=== PATIENT | female | born 1950 | race Caucasian/White ===

== ENCOUNTER 2016-07-17 14:32 | Emergency (ER) | payer MEDICARE ==
[~2016-07-17] VITALS: Ht 170.2 cm; Wt 86.2 kg
[~2016-07-17 14:32] MED LIST: ASPI325T4 PO; HYDR-971 PO; OMEP20TA PO
[2016-07-17 16:04] VITALS: BP 144/64
--- NOTE | 2016-07-17 16:22 | PHYS DOC ---
Past Medical History Past Medical History: COPD, Diverticulitis, Stroke Additional Past Medical Histor: Fibromyalgia Past Surgical History: Appendectomy, Tonsillectomy, Tubal ligation Alcohol Use: None Drug Use: None Adult General Chief Complaint Chief Complaint: HIP PAIN HPI HPI Patient is a 65 year old female who presents with L hip pain. Patient reports she has been having pain in that hip for the past 2 weeks. No fall or other trauma. Pain worse with walking or sitting on affected hip. Has been taking tylenol with insufficient relief. No pain elsewhere. No other acute complaints. Review of Systems Review of Systems Constitutional: Denies fever or chills Respiratory: Denies cough or shortness of breath Cardiovascular: Denies chest pain GI: Denies abdominal pain, nausea, vomiting, or diarrhea Musculoskeletal: L hip pain Neurologic: Denies headache, focal weakness or sensory changes Current Medications Current Medications Current Medications Medications (Trade) Dose Ordered Sig/Beatriz Start Time Stop Time Status Last Admin Dose Admin Acetaminophen/ Hydrocodone Bitart (Lortab 5/325) 1 tab 1X ONCE 07/17/16 16:30 07/17/16 16:31 DC 07/17/16 16:38 1 TAB Ibuprofen (Motrin) 600 mg 1X ONCE 07/17/16 16:30 07/17/16 16:31 DC 07/17/16 16:37 600 MG Allergies Allergies Allergies Coded Allergies Type Severity Reaction Last Updated Verified pregabalin Allergy Unknown 01/04/14 No Physical Exam Physical Exam Constitutional: Well developed, well nourished, no acute distress, non-toxic appearance Eyes: EOMI, conjunctiva normal, no discharge Pulmonary: No respiratory distress, lungs CTAB Cardiovascular: RRR, no m/r/g Abdominal: Soft, NTND Skin: Warm, dry Neurologic: Alert and oriented X 3 Musculoskeletal: L hip visually unremarkable, no erythema, skin lesion, or deformity noted; TTP over lateral hip; no significant pain with passive ROM; 2+ DP pulse; sensation to light touch, motor function intact throughout Psychologic: Affect normal, judgement normal, mood normal Current Patient Data Vital Signs Vital Signs Date Time Temp Pulse Resp B/P Pulse Ox O2 Delivery O2 Flow Rate FiO2 07/17/16 16:04 97.9 85 20 144/64 91 Room Air 97.9 EKG EKG [] Radiology/Procedures Radiology/Procedures X-ray L hip and pelvis (my read): No acute bony abnormality Course & Med Decision Making Course & Med Decision Making Pertinent Labs and Imaging studies reviewed. (See chart for details) Patient is 65 year old female who presents with atraumatic L hip pain. No overly concerning findings on physical exam. Suspect pain due to OA. Will check x-ray of hip to r/o acute bony abnormality. Oral pain meds ordered for pain control. Imaging results as above. Discussed results with patient, whose pain is improved at this time. Discussed need to follow up with ortho for further evaluation. Discharged with rx for short course of pain medication, instructions for follow up, return precautions. Dragon Disclaimer Dragon Disclaimer This electronic medical record was generated, in whole or in part, using a voice recognition dictation system. Departure Departure Impression: Primary Impression: Hip pain, left Disposition: 01 HOME, SELF-CARE Condition: STABLE Referrals: JAELYN PARKER MD (PCP) TIFFANY DING MD Patient Instructions: Hip Pain Additional Instructions: Thank you for allowing us to provide care today in the Emergency Department. Take the provided medication as directed. Use caution when taking the pain medication as it can make you drowsy. Schedule a follow up appointment with your primary care doctor and with an orthopedist using the provided contact information. Return promptly to the Emergency Department if you develop any new or concerning symptoms. Scripts Naproxen Sodium 220 Mg [id number] Mg PO BID PRN PAIN #20 Prov:IBRAHIMA LEE MD 07/17/16 Hydrocodone/Apap 5-325 ([place] 5-325 Tablet)1 Each Tablet1 Tab PO PRN Q6HRS PRN PAIN #20 TAB Prov:IBRAHIMA LEE MD 07/17/16 IBRAHIMA LEE MD Jul 17, 2016 16:22
[2016-07-17] MEDS ORDERED: HYDROCODONE/APAP 5/325MG TABLET. PO ONE (16:30)
[2016-07-17] MEDS ORDERED: IBUPROFEN 600 MG TABLET. PO ONE (16:30)
--- NOTE | 2016-07-17 17:26 | RAD ---
HIP LEFT 2V WITH PELVIS Clinical Indication: atraumatic L hip pain, r/o acute process Comparison: None. Technique: Frontal view the pelvis and frontal and frog-leg lateral views of the left hip are obtained. Findings: Bony pelvis is intact. SI joints, hip joints and pubic symphysis are maintained. Specifically, left hip joint demonstrates no evidence of acute fracture or dislocation. No significant degenerative changes are present. Overlying soft tissues demonstrate no acute finding. IMPRESSION: No acute osseous injury.
[2016-07-17] MEDS ORDERED: HYDR-971 PO (17:27)
[2016-07-17] MEDS ORDERED: NAPR220T25 PO (17:27)
== END 2016-07-17 17:43 | disposition home or self-care (01) ==
LOC: ER 14:32
DX: M25.552 Pain in left hip (principal); J44.9 Chronic obstructive pulmonary disease, unspecified; M79.7 Fibromyalgia; Z86.73 Personal history of transient ischemic attack (TIA), and cerebral infarction without residual deficits; Z90.49 Acquired absence of other specified parts of digestive tract; Z98.51 Tubal ligation status; Z88.8 Allergy status to other drugs, medicaments and biological substances
CPT/HCPCS: 73502; 99284

== ENCOUNTER 2017-07-04 21:41 | Emergency (ER) | payer MEDICARE ==
[2017-07-04] MEDS: IV NORMAL SALINE 1000ML BAG 1,000 ML IV (22:46)
[2017-07-04 22:49] LABS: ADD MAN DIFF? NO
[2017-07-04] MEDS: MORPHINE SULFATE 4 MG/ML DISP.SYRIN. IV ×2 (22:49→23:30)
[2017-07-04 22:53] LABS: BASO % 1 % (0-3); EOS # 0.1 x10^3/uL (0.0-0.7); EOS % 1 % (0-3); HEMATOCRIT 38.9 % (36.0-47.0); HEMOGLOBIN 13.1 g/dL (12.0-15.5); LYMPH # 1.8 x10^3/uL (1.0-4.8); LYMPH % 22 % (24-48); MEAN CORPUSCULAR HEMOGLOBIN 31 pg (25-35); MEAN CORPUSCULAR HGB CONC 34 g/dL (31-37); MEAN CORPUSCULAR VOLUME 91 fL (79-100); MONO # 0.7 x10^3/uL (0.0-1.1); MONO % 8 % (0-9); NEUT # 5.6 x10^3uL (1.8-7.7); NEUT % 68 % (31-73); PLATELET COUNT 233 x10^3/uL (140-400); RED BLOOD COUNT 4.28 x10^6/uL (3.50-5.40); RED CELL DISTRIBUTION WIDTH 13.1 % (11.5-14.5); WHITE BLOOD COUNT 8.2 x10^3/uL (4.0-11.0)
[2017-07-04 22:54] LABS: BILIRUBIN,URINE NEGATIVE (NEG); CLARITY,URINE CLOUDY; GLUCOSE,URINE NEGATIVE (NEG); NITRITE,URINE POSITIVE (NEG); PH,URINE 6.5; PROTEIN,URINE 30 mg/dL (NEG-TRACE); UROBILINOGEN,URINE 0.2 mg/dL (0.2 mg/dL)
[2017-07-04 22:57] LABS: COLOR,URINE STRAW
[2017-07-04 22:59] LABS: BACTERIA,URINE MANY /HPF (0-FEW); SQUAMOUS EPITHELIAL CELL,UR FEW /LPF; WBC,URINE >40 /HPF (0-4)
[2017-07-04 23:00] LABS: ANION GAP 11 (6-14); BLOOD UREA NITROGEN 18 mg/dL (7-20); BUN/CREATININE RATIO 23 (6-20); CALCIUM 8.5 mg/dL (8.5-10.1); CARBON DIOXIDE 26 mmol/L (21-32); CHLORIDE 105 mmol/L (98-107); CREATININE 0.8 mg/dL (0.6-1.0); GFR 71.8; GLUCOSE 115 mg/dL (70-99); POTASSIUM 3.7 mmol/L (3.5-5.1); SODIUM 142 mmol/L (136-145)
[2017-07-04 23:06] LABS: ALBUMIN 3.2 g/dL (3.4-5.0); ALBUMIN/GLOBULIN RATIO 0.9 (1.0-1.7); ALK PHOS 138 U/L (46-116); ALT (SGPT) 24 U/L (14-59); AST (SGOT) 17 U/L (15-37); TOTAL BILIRUBIN 0.4 mg/dL (0.2-1.0); TOTAL PROTEIN 6.6 g/dL (6.4-8.2)
== END 2017-07-05 00:40 | disposition home or self-care (01) ==
LOC: ER 07-05 00:40
DX: N39.0 Urinary tract infection, site not specified (principal); E86.0 Dehydration; J44.9 Chronic obstructive pulmonary disease, unspecified; Z86.73 Personal history of transient ischemic attack (TIA), and cerebral infarction without residual deficits; Z98.51 Tubal ligation status; Z90.49 Acquired absence of other specified parts of digestive tract; Z88.8 Allergy status to other drugs, medicaments and biological substances
CPT/HCPCS: 36415; 80053; 81001; 85025; 96361; 96365; 96375; 99285-25; J0690; J2270; J7030

== ENCOUNTER → 2017-07-11 | Outpatient (CLI) | payer MEDICARE | END | disposition home or self-care (01) | LOC: KCIC MAMMO 10:09 | DX: Z12.31 Encounter for screening mammogram for malignant neoplasm of breast (principal) | CPT/HCPCS: 77063; 77067 ==

== ENCOUNTER → 2017-08-04 | Outpatient (CLI) | payer MEDICARE ==
[2017-08-04 13:40] LABS: ADD MAN DIFF? NO
[2017-08-04 13:43] LABS: BASO # 0.1 x10^3/uL (0.0-0.2); BASO % 1 % (0-3); EOS # 0.1 x10^3/uL (0.0-0.7); EOS % 2 % (0-3); HEMOGLOBIN 14.5 g/dL (12.0-15.5); LYMPH # 2.1 x10^3/uL (1.0-4.8); LYMPH % 34 % (24-48); MEAN CORPUSCULAR HEMOGLOBIN 32 pg (25-35); MEAN CORPUSCULAR HGB CONC 35 g/dL (31-37); MEAN CORPUSCULAR VOLUME 91 fL (79-100); MONO # 0.5 x10^3/uL (0.0-1.1); MONO % 8 % (0-9); NEUT # 3.4 x10^3uL (1.8-7.7); NEUT % 56 % (31-73); PLATELET COUNT 220 x10^3/uL (140-400); RED BLOOD COUNT 4.51 x10^6/uL (3.50-5.40); RED CELL DISTRIBUTION WIDTH 13.1 % (11.5-14.5); WHITE BLOOD COUNT 6.2 x10^3/uL (4.0-11.0)
[2017-08-04 13:48] LABS: BILIRUBIN,URINE NEGATIVE (NEG); CLARITY,URINE CLEAR; COLOR,URINE YELLOW; GLUCOSE,URINE NEGATIVE (NEG); NITRITE,URINE NEGATIVE (NEG); PROTEIN,URINE NEGATIVE (NEG-TRACE); UROBILINOGEN,URINE 0.2 mg/dL (0.2 mg/dL)
[2017-08-04 13:55] LABS: PARTIAL THROMBOPLASTIN TIME 24 SEC (24-38); PROTHROMBIN TIME PATIENT 12.3 SEC (11.7-14.0)
[2017-08-04 14:02] LABS: ALBUMIN 3.6 g/dL (3.4-5.0); ALK PHOS 124 U/L (46-116); ALT (SGPT) 28 U/L (14-59); ANION GAP 7 (6-14); AST (SGOT) 19 U/L (15-37); BLOOD UREA NITROGEN 16 mg/dL (7-20); BUN/CREATININE RATIO 20 (6-20); CARBON DIOXIDE 30 mmol/L (21-32); CHLORIDE 104 mmol/L (98-107); CREATININE 0.8 mg/dL (0.6-1.0); GFR 71.8; GLUCOSE 90 mg/dL (70-99); POTASSIUM 3.9 mmol/L (3.5-5.1); SODIUM 141 mmol/L (136-145); TOTAL BILIRUBIN 0.4 mg/dL (0.2-1.0); TOTAL PROTEIN 7.3 g/dL (6.4-8.2)
[2017-08-04 14:06] LABS: BACTERIA,URINE FEW /HPF (0-FEW); RBC,URINE 0 /HPF (0-2); SQUAMOUS EPITHELIAL CELL,UR MOD /LPF
== END | disposition home or self-care (01) ==
LOC: SURGPAT 13:01
DX: Z01.818 Encounter for other preprocedural examination (principal); I10 Essential (primary) hypertension; E78.5 Hyperlipidemia, unspecified
CPT/HCPCS: 36415; 71046; 80053; 81001; 85025; 85610; 85730; 93005

== ENCOUNTER 2017-08-10 08:39 | Observation (INO) | payer MEDICARE ==
[~2017-08-10 08:39] MED LIST changes: -ASPI325T4 PO; +DEXAMETHASONE SOD PHOS 20 MG/5 ML VIAL.; +ESTROGENS, CONJ VAGINAL CREAM 30GM TUBE.; -HYDR-971 PO; +IV RINGERS,LACTATED 1000ML 1,000 ML IV; +LIDOCAINE 1% PF 2 ML VIAL. ID; +LIDOCAINE 2% PF Vial for OR 5 ML VIAL.; +METHYLENE BLUE 1% 10 ML VIAL.; +MIDAZOLAM HCL/PF 2 MG/2 ML VIAL.; +MORPHINE SULFATE 2 MG/ML DISP.SYRIN. IV; -OMEP20TA PO; +PROCHLORPERAZINE 10 MG/2 ML VIAL. IV; +PROPOFOL 20 ML IV; +ROCURONIUM 50 MG/5 ML VIAL.; +SCOPOLAMINE 1.5MG PATCH. TD; +ceFAZolin 2GM PREMIX 2 GM/50 ML BAG IV; +fentaNYL PF VIAL 100 MCG/2 ML VIAL; +fentaNYL PF VIAL 100 MCG/2 ML VIAL IV
[2017-08-10] MEDS: BUPIVACAINE-EPI 0.25%-1:200000 50 ML VIAL. ×6 (09:06)
[2017-08-10] MEDS ORDERED: fentaNYL PF VIAL 100 MCG/2 ML VIAL ×9 (09:19→12:11)
[2017-08-10] MEDS ORDERED: ONDANSETRON PF 4 MG/2 ML VIAL. ×3 (10:26)
[2017-08-10] MEDS ORDERED: GLYCOPYRROLATE 1 MG/5 ML VIAL. ×3 (10:26)
[2017-08-10] MEDS ORDERED: NEOSTIGMINE METHYLSULFATE 5 MG/5 ML SYRINGE. ×3 (10:26)
[2017-08-10] MEDS ORDERED: SEVOFLURANE 61 TO 120 MINUTES. IH ×3 (10:28)
[2017-08-10] MEDS ORDERED: PHENYLEPHRINE 10 MG/ML VIAL. ×3 (10:34)
[2017-08-10] MEDS ORDERED: METOCLOPRAMIDE HCL 10 MG/2 ML VIAL. ×3 (10:38)
[2017-08-10] MEDS ORDERED: diphenhydrAMINE HCL 25 MG CAPSULE PO ×3 (11:00)
[2017-08-10] MEDS ORDERED: ALBUTEROL SULFATE 2.5 MG/3 ML NEBU. NEB ×3 (11:00)
[2017-08-10] MEDS ORDERED: MAGNESIUM HYDROXIDE 2,400 MG/30 ML ORAL.SUSP. PO ×3 (11:00)
[2017-08-10] MEDS ORDERED: 0.9 % SODIUM CHLORIDE 10 ML DISP.SYRIN. IV ×3 (11:00)
[2017-08-10] MEDS ORDERED: MORPHINE SULFATE 4 MG/ML DISP.SYRIN. IV ×3 (11:00)
[2017-08-10] MEDS ORDERED: CALCIUM CARBONATE 500 MG TAB.CHEW PO ×3 (11:00)
[2017-08-10] MEDS ORDERED: NALOXONE 0.4 MG/ML VIAL. IV ×3 (11:00)
[2017-08-10] MEDS ORDERED: MAG HYDROX/ALUMINUM HYD/SIMETH 30 ML ORAL.SUSP PO ×3 (11:00)
[2017-08-10] MEDS ORDERED: LACTULOSE 20 GM/30 ML SOLUTION. PO ×3 (11:00)
[2017-08-10] MEDS ORDERED: SIMETHICONE 80 MG TAB.CHEW PO ×3 (11:00)
[2017-08-10] MEDS ORDERED: ZOLPIDEM 5 MG TABLET. PO ×3 (11:00)
[2017-08-10] MEDS ORDERED: diphenhydrAMINE 50 MG/ML VIAL IV ×3 (11:00)
[2017-08-10] MEDS ORDERED: ONDANSETRON PF 4 MG/2 ML VIAL. IV ×3 (11:00)
[2017-08-10] MEDS ORDERED: HYDROcodone/APAP 5/325MG 1 TAB TABLET PO ×3 (11:00)
[2017-08-10] MEDS: fentaNYL PF VIAL 100 MCG/2 ML VIAL IV ×9 (11:46→12:23)
[2017-08-10] MEDS: ONDANSETRON PF 4 MG/2 ML VIAL. IV ×3 (13:18)
[2017-08-10] MEDS: oxyCODONE/APAP 5/325 1 TAB TABLET PO ×3 (15:52)
[2017-08-11 03:30] LABS: HEMATOCRIT 39.6 % (36.0-47.0)
[2017-08-11 03:48] LABS: ANION GAP 6 (6-14); BLOOD UREA NITROGEN 11 mg/dL (7-20); CALCIUM 8.7 mg/dL (8.5-10.1); CARBON DIOXIDE 29 mmol/L (21-32); CHLORIDE 106 mmol/L (98-107); CREATININE 0.8 mg/dL (0.6-1.0); GFR 71.8; GLUCOSE 111 mg/dL (70-99); POTASSIUM 4.1 mmol/L (3.5-5.1); SODIUM 141 mmol/L (136-145)
[2017-08-11] MEDS: oxyCODONE/APAP 5/325 1 TAB TABLET PO ×3 (07:17)
== END 2017-08-11 09:50 | disposition home or self-care (01) ==
LOC: SURG 08:39 → 3 NORTH 11:45
DX: N80.0 Endometriosis of uterus (principal); N88.8 Other specified noninflammatory disorders of cervix uteri; K66.0 Peritoneal adhesions (postprocedural) (postinfection); N85.8 Other specified noninflammatory disorders of uterus; J44.9 Chronic obstructive pulmonary disease, unspecified; N81.3 Complete uterovaginal prolapse; Z90.49 Acquired absence of other specified parts of digestive tract
CPT/HCPCS: 36415; 80048; 85014; 86850; 86900; 86901; 88302; 88305; 96374; A7015; G0378; G0379; J0690; J1100; J2001; J2250; J2405; J2704; J2710; J2765; J3010; J3490; J7030; J7120; Q9968

== ENCOUNTER 2018-01-26 14:28 | Inpatient (IN) | payer MEDICARE ==
[~2018-01-26] VITALS: Ht 170.2 cm; Wt 89.4 kg
[~2018-01-26 14:28] MED LIST changes: +ASPI325T8 PO; +CIPR500T PO; -DEXAMETHASONE SOD PHOS 20 MG/5 ML VIAL.; -ESTROGENS, CONJ VAGINAL CREAM 30GM TUBE.; +HYDR-971 PO; -IV RINGERS,LACTATED 1000ML 1,000 ML IV; -LIDOCAINE 1% PF 2 ML VIAL. ID; -LIDOCAINE 2% PF Vial for OR 5 ML VIAL.; -METHYLENE BLUE 1% 10 ML VIAL.; -MIDAZOLAM HCL/PF 2 MG/2 ML VIAL.; -MORPHINE SULFATE 2 MG/ML DISP.SYRIN. IV; +NAPR-634 PO; +OMEP20TA8 PO; -PROCHLORPERAZINE 10 MG/2 ML VIAL. IV; -PROPOFOL 20 ML IV; -ROCURONIUM 50 MG/5 ML VIAL.; -SCOPOLAMINE 1.5MG PATCH. TD; -ceFAZolin 2GM PREMIX 2 GM/50 ML BAG IV; -fentaNYL PF VIAL 100 MCG/2 ML VIAL; -fentaNYL PF VIAL 100 MCG/2 ML VIAL IV
[2018-01-26] MEDS ORDERED: fentaNYL PF VIAL 100 MCG/2 ML VIAL IV ONE (15:15)
[2018-01-26] MEDS ORDERED: FAMOTIDINE 20 MG/2 ML VIAL IVP ONE (15:15)
--- NOTE | 2018-01-26 15:21 | PHYS DOC ---
Past Medical History Past Medical History: High Cholesterol, Stroke Additional Past Medical Histor: Fibromyalgia Past Surgical History: Hysterectomy Alcohol Use: None Drug Use: None Adult General Chief Complaint Chief Complaint: ABDOMINAL PAIN HPI HPI Patient is a 67 year old female who presents with upper abdominal pain that she states goes from right to left and all the way around her back and has been coming off and on for the last 30 minutes. Patient states it's a crampy pain and she rates it 10 out of 10. Patient states this morning she had a hamburger and fries and a Coke. Patient did state she had some nausea but has not vomited. She is alert and oriented. Patient denies chest pain but states she is short of air. She took no medications before coming and only takes naproxen and aspirin daily. Patient has a history of a stroke 5 years ago without any residual, hysterectomy, high cholesterol. She is allergic to Lyrica. Review of Systems Review of Systems Constitutional: Denies fever or chills [] Eyes: Denies change in visual acuity, redness, or eye pain [] HENT: Denies nasal congestion or sore throat [] Respiratory: Denies cough. Shortness of breath [] Cardiovascular: No additional information not addressed in HPI [] GI: bilateral upper quadrants abdominal pain with radiation around to back, nausea. Denies vomiting, bloody stools or diarrhea [] : Denies dysuria or hematuria [] Musculoskeletal: Denies back pain or joint pain [] Integument: Denies rash or skin lesions [] Neurologic: Denies headache, focal weakness or sensory changes [] Endocrine: Denies polyuria or polydipsia [] All other systems were reviewed and found to be within normal limits, except as documented in this note. Current Medications Current Medications Current Medications Medications (Trade) Dose Ordered Sig/Beatriz Start Time Stop Time Status Last Admin Dose Admin Acetaminophen (Tylenol) 650 mg PRN Q4HRS PRN 01/26/18 17:30 01/27/18 17:29 Ceftriaxone Sodium 50 ml @ 100 mls/hr 1X ONCE 01/26/18 17:30 01/26/18 17:59 Famotidine (Pepcid Vial) 20 mg 1X ONCE 01/26/18 15:15 01/26/18 15:16 DC 01/26/18 15:41 20 MG Fentanyl Citrate (Fentanyl 2ml Vial) 50 mcg PRN Q2HR PRN 01/26/18 17:30 01/27/18 17:29 Info (CONTRAST GIVEN -- Rx MONITORING) 1 each PRN DAILY PRN 01/26/18 16:45 01/28/18 16:44 Iohexol (Omnipaque 300 Mg/ml) 75 ml 1X ONCE 01/26/18 16:45 01/26/18 16:46 DC 01/26/18 16:53 75 ML Ondansetron HCl (Zofran) 4 mg PRN Q8HRS PRN 01/26/18 17:30 01/27/18 17:29 Sodium Chloride 1,000 ml @ 80 mls/hr [id number] 01/26/18 17:23 01/27/18 17:22 Allergies Allergies Allergies Coded Allergies Type Severity Reaction Last Updated Verified pregabalin Allergy Intermediate 08/04/17 No Physical Exam Physical Exam Constitutional: Well developed, well nourished, no acute distress, non-toxic appearance. [] HENT: Normocephalic, atraumatic, bilateral external ears normal, oropharynx moist, no oral exudates, nose normal. [] Eyes: PERRLA, EOMI, conjunctiva normal, no discharge. [] Neck: Normal range of motion, no tenderness, supple, no stridor. [] Cardiovascular:Heart rate regular rhythm, no murmur [] Lungs & Thorax: Bilateral breath sounds clear to auscultation [] Abdomen: Bowel sounds normal, soft, Left upper abdominal tenderness, no masses, no pulsatile masses. [] Skin: Warm, dry, no erythema, no rash. [] Back: No tenderness, no CVA tenderness. [] Extremities: No tenderness, no cyanosis, no clubbing, ROM intact, no edema. [] Neurologic: Alert and oriented X 3, normal motor function, normal sensory function, no focal deficits noted. [] Psychologic: Affect normal, judgement normal, mood normal. [] Current Patient Data Vital Signs Vital Signs Date Time Temp Pulse Resp B/P (MAP) Pulse Ox O2 Delivery O2 Flow Rate FiO2 01/26/18 15:40 20 97 01/26/18 14:50 97.5 106 177/88 (117) Room Air 97.5 Lab Values Laboratory Tests Test 01/26/18 15:30 01/26/18 16:05 White Blood Count 7.2 x10^3/uL (4.0-11.0) Red Blood Count 4.57 x10^6/uL (3.50-5.40) Hemoglobin 14.5 g/dL (12.0-15.5) Hematocrit 41.7 % (36.0-47.0) Mean Corpuscular Volume 91 fL (79-100) Mean Corpuscular Hemoglobin 32 pg (25-35) Mean Corpuscular Hemoglobin Concent 35 g/dL (31-37) Red Cell Distribution Width 13.4 % (11.5-14.5) Platelet Count 203 x10^3/uL (140-400) Neutrophils (%) (Auto) 75 % (31-73) H Lymphocytes (%) (Auto) 17 % (24-48) L Monocytes (%) (Auto) 6 % (0-9) Eosinophils (%) (Auto) 1 % (0-3) Basophils (%) (Auto) 0 % (0-3) Neutrophils # (Auto) 5.4 x10^3uL (1.8-7.7) Lymphocytes # (Auto) 1.3 x10^3/uL (1.0-4.8) Monocytes # (Auto) 0.5 x10^3/uL (0.0-1.1) Eosinophils # (Auto) 0.1 x10^3/uL (0.0-0.7) Basophils # (Auto) 0.0 x10^3/uL (0.0-0.2) Sodium Level 141 mmol/L (136-145) Potassium Level 4.2 mmol/L (3.5-5.1) Chloride Level 105 mmol/L (98-107) Carbon Dioxide Level 26 mmol/L (21-32) Anion Gap 10 (6-14) Blood Urea Nitrogen 17 mg/dL (7-20) Creatinine 0.8 mg/dL (0.6-1.0) Estimated GFR (Cockcroft-Gault) 71.5 BUN/Creatinine Ratio 21 (6-20) H Glucose Level 100 mg/dL (70-99) H Calcium Level 9.7 mg/dL (8.5-10.1) Total Bilirubin 0.5 mg/dL (0.2-1.0) Aspartate Amino Transferase (AST) 73 U/L (15-37) H Alanine Aminotransferase (ALT) 54 U/L (14-59) Alkaline Phosphatase 180 U/L (46-116) H Troponin I Quantitative < 0.017 ng/mL (0.000-0.055) Total Protein 7.5 g/dL (6.4-8.2) Albumin 3.8 g/dL (3.4-5.0) Albumin/Globulin Ratio 1.0 (1.0-1.7) Lipase 149 U/L (73-393) Urine Collection Type Unknown Urine Color Yellow Urine Clarity Clear Urine pH 7.0 Urine Specific [place] 1.020 Urine Protein Negative mg/dL (NEG-TRACE) Urine Glucose (UA) Negative mg/dL (NEG) Urine Ketones (Stick) Negative mg/dL (NEG) Urine Blood Negative (NEG) Urine Nitrite Positive (NEG) Urine Bilirubin Negative (NEG) Urine Urobilinogen Dipstick 0.2 mg/dL (0.2 mg/dL) Urine Leukocyte Esterase Large (NEG) Urine RBC 0 /HPF (0-2) Urine WBC >40 /HPF (0-4) Urine Squamous Epithelial Cells Few /LPF Urine Bacteria Many /HPF (0-FEW) Urine Mucus Mod /LPF Urine Opiates Screen Neg (NEG) Urine Methadone Screen Neg (NEG) Urine Barbiturates Neg (NEG) Urine Phencyclidine Screen Neg (NEG) Urine Amphetamine/Methamphetamine Neg (NEG) Urine Benzodiazepines Screen Neg (NEG) Urine Cocaine Screen Neg (NEG) Urine Cannabinoids Screen Neg (NEG) Urine Ethyl Alcohol Neg (NEG) Laboratory Tests 01/26/18 15:30 Laboratory Tests 01/26/18 15:30 EKG EKG Sinus rhythm, no STEMI[] Interpretation Time: [address] Lovett Radiology/Procedures Radiology/Procedures CT abdomen, pelv, Chest xray Impressions: [facility] [address] [place], [place] [id number] IMAGING REPORT Signed PATIENT: HALLEY OBRIEN V ACCOUNT: [id number] : 1950 LOCATION: ER AGE: 67 SEX: F EXAM STATUS: PRE ER ORD. PHYSICIAN: LAZ PRABHAKAR APRN REASON: shortness of air blood work 3:25 PROCEDURE: CHEST PA & LATERAL CHEST PA LATERAL History: Short of breath Comparison: Two-view chest August 04, 2017. Findings: The cardiomediastinal silhouette is normal. Pulmonary vasculature is normal. The lungs are clear. No pleural effusion or pneumothorax is seen. There is no acute bone abnormality. IMPRESSION: No acute cardiopulmonary process. Electronically signed by: Yuriy Dickson MD (01/26/2018 4:11 PM) [id number] DICTATED and SIGNED BY: YURIY DICKSON MD DATE: 01/26/18 1610 [facility] [address] [place] [address] IMAGING REPORT Signed PATIENT: HALLEY OBRIEN V ACCOUNT: [id number] : 1950 LOCATION: ER AGE: 67 SEX: F EXAM STATUS: REG ER ORD. PHYSICIAN: LAZ PRABHAKAR APRN REASON: abdominal pain PROCEDURE: CT ABD PELV W/ IV CONTRST ONLY PQRS Compliance statement: One or more of the following individualized dose reduction techniques were utilized for this examination: 1. Automated exposure control. 2. Adjustment of the mA and/or kV according to patient size. 3. Use of iterative reconstruction technique. Indication:ABD PAIN AND NAUSEA INJ 75ML OMNI 300 PREV SENT TECHNIQUE: CT abdomen and pelvis with IV contrast with multiplanar reformats. COMPARISON: 01/23/2016 FINDINGS: Heart is normal in size. No pericardial or pleural effusion. Small sliding hiatal hernia. Clear lung bases. Liver, spleen, gallbladder, pancreas, adrenals and kidneys within normal limits. No enlarged retroperitoneal or pelvic adenopathy. No free pelvic fluid or ascites. No bowel obstruction. Urinary bladder within normal limits. Status post hysterectomy. No pneumoperitoneum. No suspicious bony lesion. IMPRESSION: 1. Small sliding hiatal hernia. Electronically signed by: Alejandro Pablo DO (01/26/2018 5:03 PM) [facility] DICTATED and SIGNED BY: ALEJANDRO PABLO DO DATE: 01/26/18 1659 Course & Med Decision Making Course & Med Decision Making Patient is a 67 year old female who presents with upper abdominal pain that she states goes from right to left and all the way around her back and has been coming off and on for the last 30 minutes. Patient states it's a crampy pain and she rates it 10 out of 10. Patient states this morning she had a hamburger and fries and a Coke. Patient did state she had some nausea but has not vomited. She is alert and oriented. Patient denies chest pain but states she is short of air. She took no medications before coming and only takes naproxen and aspirin daily. Patient has a history of a stroke 5 years ago without any residual, hysterectomy, high cholesterol. She is allergic to Lyrica. When patient is asked about her pain she points directly to her mid epigastric area and states that it will radiate up the mid chest slightly and then radiates around her abdomen to her back. Abdomen is soft and there are no masses felt but she does have some left upper quadrant tenderness with palpation. Heart rate is at on 106 but no murmur. She is 95% on room air, blood pressure is 177/ 88. Skin is pink warm and dry. I have ordered her Pepcid, Fentanyl and Zofran IV. EKG show Sinus Rhythm and no STEMI by Dr Lovett. Chest x-ray shows no acute findings. Troponin is negative. CT ABD PELV shows small sliding hiatal hernia. Urinalysis shows probable pyelonephritis. Patient is started on Rocephin and is admitted to Dr Cash. Patient states she is feeling much better and is wanting something to eat or drink. Patient is told she needs to stay NPO at this time. Dragon Disclaimer Dragon Disclaimer This electronic medical record was generated, in whole or in part, using a voice recognition dictation system. Departure Departure Impression: Primary Impression: Pyelonephritis Disposition: ADMITTED INPATIENT Admitting Physician: Rhiannon Cash Condition: STABLE Referrals: JAELYN PARKER MD (PCP) Patient Instructions: Pyelonephritis, Adult LAZ PRABHAKAR WIRE SPOOLER Jan 26, 2018 15:21
[2018-01-26] MEDS ORDERED: ONDANSETRON PF 4 MG/2 ML VIAL. IV ONE (15:30)
--- NOTE | 2018-01-26 15:57 | EKG ---
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
[2018-01-26 16:10] LABS: BASO % 0 % (0-3); EOS # 0.1 x10^3/uL (0.0-0.7); EOS % 1 % (0-3); HEMATOCRIT 41.7 % (36.0-47.0); HEMOGLOBIN 14.5 g/dL (12.0-15.5); LYMPH # 1.3 x10^3/uL (1.0-4.8); LYMPH % 17 % (24-48); MEAN CORPUSCULAR HEMOGLOBIN 32 pg (25-35); MEAN CORPUSCULAR HGB CONC 35 g/dL (31-37); MEAN CORPUSCULAR VOLUME 91 fL (79-100); MONO # 0.5 x10^3/uL (0.0-1.1); MONO % 6 % (0-9); NEUT # 5.4 x10^3uL (1.8-7.7); NEUT % 75 % (31-73); PLATELET COUNT 203 x10^3/uL (140-400); RED BLOOD COUNT 4.57 x10^6/uL (3.50-5.40); RED CELL DISTRIBUTION WIDTH 13.4 % (11.5-14.5); WHITE BLOOD COUNT 7.2 x10^3/uL (4.0-11.0)
--- NOTE | 2018-01-26 16:14 | RAD ---
CHEST PA LATERAL History: Short of breath Comparison: Two-view chest August 04, 2017. Findings: The cardiomediastinal silhouette is normal. Pulmonary vasculature is normal. The lungs are clear. No pleural effusion or pneumothorax is seen. There is no acute bone abnormality. IMPRESSION: No acute cardiopulmonary process. Electronically signed by: Yuriy Dickson MD (01/26/2018 4:11 PM) [id number]
[2018-01-26 16:21] LABS: CALCIUM 9.7 mg/dL (8.5-10.1); CREATININE 0.8 mg/dL (0.6-1.0); GFR 71.5; POTASSIUM 4.2 mmol/L (3.5-5.1)
[2018-01-26 16:25] LABS: BILIRUBIN,URINE NEGATIVE (NEG); CLARITY,URINE CLEAR; COLOR,URINE YELLOW; NITRITE,URINE POSITIVE (NEG); PROTEIN,URINE NEGATIVE (NEG-TRACE); UROBILINOGEN,URINE 0.2 mg/dL (0.2 mg/dL)
[2018-01-26 16:29] LABS: BARBITURATES NEG (NEG); BENZODIAZEPINES NEG (NEG); CANNABINOIDS NEG (NEG); COCAINE NEG (NEG); METHADONE NEG (NEG); OPIATES NEG (NEG); PHENCYCLIDINE NEG (NEG)
[2018-01-26 16:31] LABS: AMPHETAMINE/METHAMPHETAMINE NEG (NEG)
[2018-01-26 16:32] LABS: BACTERIA,URINE MANY /HPF (0-FEW); SQUAMOUS EPITHELIAL CELL,UR FEW /LPF; WBC,URINE >40 /HPF (0-4)
[2018-01-26 16:33] LABS: RBC,URINE 0 /HPF (0-2)
[2018-01-26 16:33] LABS: ALBUMIN 3.8 g/dL (3.4-5.0); TOTAL BILIRUBIN 0.5 mg/dL (0.2-1.0); TOTAL PROTEIN 7.5 g/dL (6.4-8.2)
[2018-01-26] MEDS ORDERED: CONTRAST GIVEN. MC PRN (16:45)
[2018-01-26] MEDS ORDERED: IOHEXOL 300 MG/ML 100ML VIAL. IV ONE (16:45)
[2018-01-26] MEDS ORDERED: IV NORMAL SALINE 1000ML BAG 1,000 ML IV ONE (17:00)
--- NOTE | 2018-01-26 17:06 | RAD ---
PQRS Compliance statement: One or more of the following individualized dose reduction techniques were utilized for this examination: 1. Automated exposure control. 2. Adjustment of the mA and/or kV according to patient size. 3. Use of iterative reconstruction technique. Indication:ABD PAIN AND NAUSEA INJ 75ML OMNI 300 PREV SENT TECHNIQUE: CT abdomen and pelvis with IV contrast with multiplanar reformats. COMPARISON: 01/23/2016 FINDINGS: Heart is normal in size. No pericardial or pleural effusion. Small sliding hiatal hernia. Clear lung bases. Liver, spleen, gallbladder, pancreas, adrenals and kidneys within normal limits. No enlarged retroperitoneal or pelvic adenopathy. No free pelvic fluid or ascites. No bowel obstruction. Urinary bladder within normal limits. Status post hysterectomy. No pneumoperitoneum. No suspicious bony lesion. IMPRESSION: 1. Small sliding hiatal hernia. Electronically signed by: Alejandro Pablo DO (01/26/2018 5:03 PM) [facility]
[2018-01-26] MEDS ORDERED: ONDANSETRON PF 4 MG/2 ML VIAL. IV PRN ×2 (17:30→18:00)
[2018-01-26] MEDS ORDERED: ACETAMINOPHEN 325 MG TABLET. PO PRN (17:30)
[2018-01-26] MEDS ORDERED: fentaNYL PF VIAL 100 MCG/2 ML VIAL IV PRN (17:30)
[2018-01-26] MEDS ORDERED: MAG HYDROX/ALUMINUM HYD/SIMETH 30 ML ORAL.SUSP PO PRN (18:00)
[2018-01-26] MEDS ORDERED: LIDO:MAALOX 1:1 20 ML SINGLE DOSE. PO PRN (18:00)
--- NOTE | 2018-01-26 18:06 | PDOC1 ---
History and Physical Date of Admission Date of Admission DATE: 01/26/18 TIME: 18:01 Identification/Chief Complaint Chief Complaint epig pain Source Source: Caregiver, Chart review, Patient History of Present Illness History of Present Illness 67-year-old female who only takes a statin for dyslipidemia, epigastric pain today. Acute on chronic epig pain, no weight loss, no emesis, no change in BM. CAT scan shows small hiatal hernia but there is an incidental UTI hence admitted. Blood pressure on the high side. Patient claims that she was arranged by her PCP to see a GI M.D. 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 Never had an EGD. She does not think it is her heart and i believe her, She clearly points to epig area and describes reflux sxs to me. She chronically takes Prevacid. Trial of Tums and Mylanta OTC to no relief. Previous smoker, quit 8 months ago because she "got tired of it." Otherwise no drinking history. No history of peptic ulcer disease in the family. She does take aspirin and NSAIDs at home when necessary. I will consult GI, treat UTI and go from there. She is agreeable to my plan, Past Medical History Cardiovascular: No pertinent hx, Hyperlipidemia Pulmonary: COPD GI: No pertinent hx Heme/Onc: No pertinent hx Infectious disease: No pertinent hx Renal/: No pertinent hx Endocrine: No pertinent hx Past Surgical History Past Surgical History: Appendectomy, Tubal Ligation, Hysterectomy Family History Family History: Hypertension Social History Smoke: Quit ALCOHOL: none Drugs: None Current Problem List Problem List Problems Medical Problems: (1) Pyelonephritis Status: Acute Current Medications Current Medications Current Medications Famotidine (Pepcid Vial) 20 mg 1X ONCE IVP Last administered on 01/26/18at 15: 41; Start 01/26/18 at 15:15; Stop 01/26/18 at 15:16; Status DC Fentanyl Citrate (Fentanyl 2ml Vial) 50 mcg 1X ONCE IV Last administered on at 15:40; Start 01/26/18 at 15:15; Stop 01/26/18 at 15:16; Status DC Ondansetron HCl (Zofran) 4 mg 1X ONCE IV Last administered on 01/26/18at 15:40 ; Start 01/26/18 at 15:30; Stop 01/26/18 at 15:31; Status DC Iohexol (Omnipaque 300 Mg/ml) 75 ml 1X ONCE IV Last administered on at 16:53; Start 01/26/18 at 16:45; Stop 01/26/18 at 16:46; Status DC Info (CONTRAST GIVEN -- Rx MONITORING) 1 each PRN DAILY PRN MC SEE COMMENTS; Start 01/26/18 at 16:45; Stop 01/28/18 at 16:44 Sodium Chloride 1,000 ml @ 1,000 mls/hr 1X ONCE IV ; Start 01/26/18 at 17:00 ; Stop 01/26/18 at 17:59; Status DC Ceftriaxone Sodium 50 ml @ 100 mls/hr 1X ONCE IV ; Start 01/26/18 at 17:30; Stop 01/26/18 at 17:59; Status DC Ondansetron HCl (Zofran) 4 mg PRN Q8HRS PRN IV NAUSEA/VOMITING; Start at 17:30; Stop 01/27/18 at 17:29 Fentanyl Citrate (Fentanyl 2ml Vial) 50 mcg PRN Q2HR PRN IV PAIN; Start at 17:30; Stop 01/27/18 at 17:29 Sodium Chloride 1,000 ml @ 80 mls/hr [id number] IV ; Start 01/26/18 at 17:23; Stop 01/27/18 at 17:22 Acetaminophen (Tylenol) 650 mg PRN Q4HRS PRN PO FEVER; Start 01/26/18 at 17:30 ; Stop 01/27/18 at 17:29 Active Scripts Active Naproxen Sodium 220 Mg Tablet 220 Mg PO BID PRN Reported Aspirin 325 Mg Tablet 325 Mg PO PRN PRN Allergies Allergies: Coded Allergies: pregabalin (Unverified Allergy, Intermediate, 08/04/17) "MAKES ME STUPID" ROS Review of System Asper history of present illness, the rest of ROS 14 point negative Physical Exam General: Alert, Oriented X3, Cooperative, No acute distress HEENT: Atraumatic, PERRLA, EOMI Lungs: Clear to auscultation, Normal air movement Heart: S1S2, RRR, no thrills, no rubs, no gallops, no murmurs Cardiovascular: S1, S2 Breasts: Normal, Rt breast nml w/o mass, Lt breast nml w/o mass, Nipples normal Abdomen: Normal bowel sounds, Soft, No tenderness, No hepatosplenomegaly, No masses Rectal Exam: not examined PELVIC: Nml ext genitalia Extremities: No clubbing, No cyanosis, No edema, Normal pulses, No tenderness/ swelling Skin: No rashes, No breakdown, No significant lesion Neuro: Normal gait, Normal speech, Strength at 5/5 X4 ext, Normal tone, Sensation intact, Cranial nerves 3-12 NL, Reflexes 2+ Psych/Mental Status: Mental status NL, Mood NL Vitals Vitals Vital Signs Date Time Temp Pulse Resp B/P (MAP) Pulse Ox O2 Delivery O2 Flow Rate FiO2 01/26/18 16:30 86 16 152/73 (99) Room Air 96.0 01/26/18 15:40 97 01/26/18 14:50 97.5 97.5 Labs Labs Laboratory Tests Test 01/26/18 15:30 01/26/18 16:05 White Blood Count 7.2 x10^3/uL (4.0-11.0) Red Blood Count 4.57 x10^6/uL (3.50-5.40) Hemoglobin 14.5 g/dL (12.0-15.5) Hematocrit 41.7 % (36.0-47.0) Mean Corpuscular Volume 91 fL (79-100) Mean Corpuscular Hemoglobin 32 pg (25-35) Mean Corpuscular Hemoglobin Concent 35 g/dL (31-37) Red Cell Distribution Width 13.4 % (11.5-14.5) Platelet Count 203 x10^3/uL (140-400) Neutrophils (%) (Auto) 75 % (31-73) Lymphocytes (%) (Auto) 17 % (24-48) Monocytes (%) (Auto) 6 % (0-9) Eosinophils (%) (Auto) 1 % (0-3) Basophils (%) (Auto) 0 % (0-3) Neutrophils # (Auto) 5.4 x10^3uL (1.8-7.7) Lymphocytes # (Auto) 1.3 x10^3/uL (1.0-4.8) Monocytes # (Auto) 0.5 x10^3/uL (0.0-1.1) Eosinophils # (Auto) 0.1 x10^3/uL (0.0-0.7) Basophils # (Auto) 0.0 x10^3/uL (0.0-0.2) Sodium Level 141 mmol/L (136-145) Potassium Level 4.2 mmol/L (3.5-5.1) Chloride Level 105 mmol/L (98-107) Carbon Dioxide Level 26 mmol/L (21-32) Anion Gap 10 (6-14) Blood Urea Nitrogen 17 mg/dL (7-20) Creatinine 0.8 mg/dL (0.6-1.0) Estimated GFR (Cockcroft-Gault) 71.5 BUN/Creatinine Ratio 21 (6-20) Glucose Level 100 mg/dL (70-99) Calcium Level 9.7 mg/dL (8.5-10.1) Total Bilirubin 0.5 mg/dL (0.2-1.0) Aspartate Amino Transf (AST/SGOT) 73 U/L (15-37) Alanine Aminotransferase (ALT/SGPT) 54 U/L (14-59) Alkaline Phosphatase 180 U/L (46-116) Troponin I Quantitative < 0.017 ng/mL (0.000-0.055) Total Protein 7.5 g/dL (6.4-8.2) Albumin 3.8 g/dL (3.4-5.0) Albumin/Globulin Ratio 1.0 (1.0-1.7) Lipase 149 U/L (73-393) Urine Collection Type Unknown Urine Color Yellow Urine Clarity Clear Urine pH 7.0 Urine Specific [place] 1.020 Urine Protein Negative mg/dL (NEG-TRACE) Urine Glucose (UA) Negative mg/dL (NEG) Urine Ketones (Stick) Negative mg/dL (NEG) Urine Blood Negative (NEG) Urine Nitrite Positive (NEG) Urine Bilirubin Negative (NEG) Urine Urobilinogen Dipstick 0.2 mg/dL (0.2 mg/dL) Urine Leukocyte Esterase Large (NEG) Urine RBC 0 /HPF (0-2) Urine WBC >40 /HPF (0-4) Urine Squamous Epithelial Cells Few /LPF Urine Bacteria Many /HPF (0-FEW) Urine Mucus Mod /LPF Urine Opiates Screen Neg (NEG) Urine Methadone Screen Neg (NEG) Urine Barbiturates Neg (NEG) Urine Phencyclidine Screen Neg (NEG) Urine Amphetamine/Methamphetamine Neg (NEG) Urine Benzodiazepines Screen Neg (NEG) Urine Cocaine Screen Neg (NEG) Urine Cannabinoids Screen Neg (NEG) Urine Ethyl Alcohol Neg (NEG) Laboratory Tests Test 01/26/18 15:30 01/26/18 16:05 White Blood Count 7.2 x10^3/uL (4.0-11.0) Red Blood Count 4.57 x10^6/uL (3.50-5.40) Hemoglobin 14.5 g/dL (12.0-15.5) Hematocrit 41.7 % (36.0-47.0) Mean Corpuscular Volume 91 fL (79-100) Mean Corpuscular Hemoglobin 32 pg (25-35) Mean Corpuscular Hemoglobin Concent 35 g/dL (31-37) Red Cell Distribution Width 13.4 % (11.5-14.5) Platelet Count 203 x10^3/uL (140-400) Neutrophils (%) (Auto) 75 % (31-73) Lymphocytes (%) (Auto) 17 % (24-48) Monocytes (%) (Auto) 6 % (0-9) Eosinophils (%) (Auto) 1 % (0-3) Basophils (%) (Auto) 0 % (0-3) Neutrophils # (Auto) 5.4 x10^3uL (1.8-7.7) Lymphocytes # (Auto) 1.3 x10^3/uL (1.0-4.8) Monocytes # (Auto) 0.5 x10^3/uL (0.0-1.1) Eosinophils # (Auto) 0.1 x10^3/uL (0.0-0.7) Basophils # (Auto) 0.0 x10^3/uL (0.0-0.2) Sodium Level 141 mmol/L (136-145) Potassium Level 4.2 mmol/L (3.5-5.1) Chloride Level 105 mmol/L (98-107) Carbon Dioxide Level 26 mmol/L (21-32) Anion Gap 10 (6-14) Blood Urea Nitrogen 17 mg/dL (7-20) Creatinine 0.8 mg/dL (0.6-1.0) Estimated GFR (Cockcroft-Gault) 71.5 BUN/Creatinine Ratio 21 (6-20) Glucose Level 100 mg/dL (70-99) Calcium Level 9.7 mg/dL (8.5-10.1) Total Bilirubin 0.5 mg/dL (0.2-1.0) Aspartate Amino Transf (AST/SGOT) 73 U/L (15-37) Alanine Aminotransferase (ALT/SGPT) 54 U/L (14-59) Alkaline Phosphatase 180 U/L (46-116) Troponin I Quantitative < 0.017 ng/mL (0.000-0.055) Total Protein 7.5 g/dL (6.4-8.2) Albumin 3.8 g/dL (3.4-5.0) Albumin/Globulin Ratio 1.0 (1.0-1.7) Lipase 149 U/L (73-393) Urine Collection Type Unknown Urine Color Yellow Urine Clarity Clear Urine pH 7.0 Urine Specific [place] 1.020 Urine Protein Negative mg/dL (NEG-TRACE) Urine Glucose (UA) Negative mg/dL (NEG) Urine Ketones (Stick) Negative mg/dL (NEG) Urine Blood Negative (NEG) Urine Nitrite Positive (NEG) Urine Bilirubin Negative (NEG) Urine Urobilinogen Dipstick 0.2 mg/dL (0.2 mg/dL) Urine Leukocyte Esterase Large (NEG) Urine RBC 0 /HPF (0-2) Urine WBC >40 /HPF (0-4) Urine Squamous Epithelial Cells Few /LPF Urine Bacteria Many /HPF (0-FEW) Urine Mucus Mod /LPF Urine Opiates Screen Neg (NEG) Urine Methadone Screen Neg (NEG) Urine Barbiturates Neg (NEG) Urine Phencyclidine Screen Neg (NEG) Urine Amphetamine/Methamphetamine Neg (NEG) Urine Benzodiazepines Screen Neg (NEG) Urine Cocaine Screen Neg (NEG) Urine Cannabinoids Screen Neg (NEG) Urine Ethyl Alcohol Neg (NEG) VTE Prophylaxis Ordered VTE Prophylaxis Devices: Yes VTE Pharmacological Prophylaxi: Yes Assessment/Plan Assessment/Plan epigastric pain - acute on chronic, could not help but wonder if this is nonulcer dyspepsia, GERD, gastritis, versus peptic ulcer disease Incidental UTI Incidental sliding hiatal hernia Overweight, BMI 31 Accelerated hypertension POA Ex smoker - quit 8 mos ago Plan: Admit - regular diet is fine Continue statin Trial of GI cocktail Mylanta etc. PPI GI consult Rocephin-urine culture for incidental UTI Likely able to do by mouth Cipro on discharge] Address BP< labetolol now prn - If persists will need anti hypertensives on dc Dw her Seen at [facility] MD Jan 26, 2018 18:06
[2018-01-26] MEDS ORDERED: LABETALOL 20 MG/4 ML DISP.SYRIN. IVP PRN (18:15)
[2018-01-26] MEDS ORDERED: LIDO:MAALOX 1:1 20 ML SINGLE DOSE. SWSW ONE (18:15)
[2018-01-26] MEDS ORDERED: diphenhydrAMINE HCL 25 MG CAPSULE PO PRN (18:15)
[2018-01-26 18:45] VITALS: BP 153/71
[2018-01-26 19:00] VITALS: BP 133/72
[2018-01-26] MEDS: IV NORMAL SALINE 1000ML BAG 1,000 ML IV SCH (19:15)
[2018-01-26] MEDS: HYDROcodone/APAP 5/325MG 1 TAB TABLET PO PRN (21:37)
[2018-01-26] MEDS: SIMVASTATIN 20 MG TABLET PO SCH (21:37)
[2018-01-26] MEDS: cefTRIAXone IV Push 1 GM VIAL. IVP SCH (21:37)
[2018-01-26 23:00] VITALS: BP 139/73
[2018-01-27 03:00] VITALS: BP 107/54
[2018-01-27] MEDS: IV NORMAL SALINE 1000ML BAG 1,000 ML IV SCH (06:47)
[2018-01-27 07:00] VITALS: BP 124/46
[2018-01-27] MEDS: ASPIRIN 325 MG TABLET PO SCH (08:43)
[2018-01-27] MEDS: HYDROcodone/APAP 5/325MG 1 TAB TABLET PO PRN ×2 (08:43→15:58)
[2018-01-27 11:00] VITALS: BP 133/63
--- NOTE | 2018-01-27 13:55 | PDOC ---
PROGRESS NOTES Chief Complaint Chief Complaint Acute on chronic epigastric pain Incidental UTI Incidental sliding hiatal hernia H/o HTN History of Present Illness History of Present Illness Pt seen and examined Discussed w/RN Vitals Vitals Vital Signs Date Time Temp Pulse Resp B/P (MAP) Pulse Ox O2 Delivery O2 Flow Rate FiO2 01/27/18 11:00 97.5 69 18 133/63 (86) 90 Room Air 97.5 01/26/18 16:30 96.0 Physical Exam Physical Exam Neck: Supple, no JVD General: Alert, Oriented X3, Cooperative, No acute distress Heart: Regular rate, No murmurs Lungs: Clear Abdomen: Normal bowel sounds, Soft, Other (Left epigastrum tender to palpation ) Extremities: No clubbing, No cyanosis, No edema Skin: No rashes, No breakdown Labs LABS Laboratory Tests Test 01/26/18 15:30 01/26/18 16:05 White Blood Count 7.2 x10^3/uL (4.0-11.0) Red Blood Count 4.57 x10^6/uL (3.50-5.40) Hemoglobin 14.5 g/dL (12.0-15.5) Hematocrit 41.7 % (36.0-47.0) Mean Corpuscular Volume 91 fL (79-100) Mean Corpuscular Hemoglobin 32 pg (25-35) Mean Corpuscular Hemoglobin Concent 35 g/dL (31-37) Red Cell Distribution Width 13.4 % (11.5-14.5) Platelet Count 203 x10^3/uL (140-400) Neutrophils (%) (Auto) 75 % (31-73) Lymphocytes (%) (Auto) 17 % (24-48) Monocytes (%) (Auto) 6 % (0-9) Eosinophils (%) (Auto) 1 % (0-3) Basophils (%) (Auto) 0 % (0-3) Neutrophils # (Auto) 5.4 x10^3uL (1.8-7.7) Lymphocytes # (Auto) 1.3 x10^3/uL (1.0-4.8) Monocytes # (Auto) 0.5 x10^3/uL (0.0-1.1) Eosinophils # (Auto) 0.1 x10^3/uL (0.0-0.7) Basophils # (Auto) 0.0 x10^3/uL (0.0-0.2) Sodium Level 141 mmol/L (136-145) Potassium Level 4.2 mmol/L (3.5-5.1) Chloride Level 105 mmol/L (98-107) Carbon Dioxide Level 26 mmol/L (21-32) Anion Gap 10 (6-14) Blood Urea Nitrogen 17 mg/dL (7-20) Creatinine 0.8 mg/dL (0.6-1.0) Estimated GFR (Cockcroft-Gault) 71.5 BUN/Creatinine Ratio 21 (6-20) Glucose Level 100 mg/dL (70-99) Calcium Level 9.7 mg/dL (8.5-10.1) Total Bilirubin 0.5 mg/dL (0.2-1.0) Aspartate Amino Transf (AST/SGOT) 73 U/L (15-37) Alanine Aminotransferase (ALT/SGPT) 54 U/L (14-59) Alkaline Phosphatase 180 U/L (46-116) Troponin I Quantitative < 0.017 ng/mL (0.000-0.055) Total Protein 7.5 g/dL (6.4-8.2) Albumin 3.8 g/dL (3.4-5.0) Albumin/Globulin Ratio 1.0 (1.0-1.7) Lipase 149 U/L (73-393) Urine Collection Type Unknown Urine Color Yellow Urine Clarity Clear Urine pH 7.0 Urine Specific [place] 1.020 Urine Protein Negative mg/dL (NEG-TRACE) Urine Glucose (UA) Negative mg/dL (NEG) Urine Ketones (Stick) Negative mg/dL (NEG) Urine Blood Negative (NEG) Urine Nitrite Positive (NEG) Urine Bilirubin Negative (NEG) Urine Urobilinogen Dipstick 0.2 mg/dL (0.2 mg/dL) Urine Leukocyte Esterase Large (NEG) Urine RBC 0 /HPF (0-2) Urine WBC >40 /HPF (0-4) Urine Squamous Epithelial Cells Few /LPF Urine Bacteria Many /HPF (0-FEW) Urine Mucus Mod /LPF Urine Opiates Screen Neg (NEG) Urine Methadone Screen Neg (NEG) Urine Barbiturates Neg (NEG) Urine Phencyclidine Screen Neg (NEG) Urine Amphetamine/Methamphetamine Neg (NEG) Urine Benzodiazepines Screen Neg (NEG) Urine Cocaine Screen Neg (NEG) Urine Cannabinoids Screen Neg (NEG) Urine Ethyl Alcohol Neg (NEG) Review of Systems Review of Systems C/o pain/cramping in left epigastrium rated 5/10 as well as mild pain w/ urination Denies changes in bowel/bladder habits Assessment and Plan Assessmemt and Plan Assessment: Acute on chronic epigastric pain Incidental UTI Incidental small sliding hiatal hernia H/o HTN H/o COPD H/o hyperlipidemia Plan: labs IV abx IVF Appreciate urology input Appreciate GI input Home meds PPI PT/OT Comment Review of Relevant I have reviewed the following items regina (where applicable) has been applied. Labs Laboratory Tests Test 01/26/18 15:30 01/26/18 16:05 White Blood Count 7.2 x10^3/uL (4.0-11.0) Red Blood Count 4.57 x10^6/uL (3.50-5.40) Hemoglobin 14.5 g/dL (12.0-15.5) Hematocrit 41.7 % (36.0-47.0) Mean Corpuscular Volume 91 fL (79-100) Mean Corpuscular Hemoglobin 32 pg (25-35) Mean Corpuscular Hemoglobin Concent 35 g/dL (31-37) Red Cell Distribution Width 13.4 % (11.5-14.5) Platelet Count 203 x10^3/uL (140-400) Neutrophils (%) (Auto) 75 % (31-73) Lymphocytes (%) (Auto) 17 % (24-48) Monocytes (%) (Auto) 6 % (0-9) Eosinophils (%) (Auto) 1 % (0-3) Basophils (%) (Auto) 0 % (0-3) Neutrophils # (Auto) 5.4 x10^3uL (1.8-7.7) Lymphocytes # (Auto) 1.3 x10^3/uL (1.0-4.8) Monocytes # (Auto) 0.5 x10^3/uL (0.0-1.1) Eosinophils # (Auto) 0.1 x10^3/uL (0.0-0.7) Basophils # (Auto) 0.0 x10^3/uL (0.0-0.2) Sodium Level 141 mmol/L (136-145) Potassium Level 4.2 mmol/L (3.5-5.1) Chloride Level 105 mmol/L (98-107) Carbon Dioxide Level 26 mmol/L (21-32) Anion Gap 10 (6-14) Blood Urea Nitrogen 17 mg/dL (7-20) Creatinine 0.8 mg/dL (0.6-1.0) Estimated GFR (Cockcroft-Gault) 71.5 BUN/Creatinine Ratio 21 (6-20) Glucose Level 100 mg/dL (70-99) Calcium Level 9.7 mg/dL (8.5-10.1) Total Bilirubin 0.5 mg/dL (0.2-1.0) Aspartate Amino Transf (AST/SGOT) 73 U/L (15-37) Alanine Aminotransferase (ALT/SGPT) 54 U/L (14-59) Alkaline Phosphatase 180 U/L (46-116) Troponin I Quantitative < 0.017 ng/mL (0.000-0.055) Total Protein 7.5 g/dL (6.4-8.2) Albumin 3.8 g/dL (3.4-5.0) Albumin/Globulin Ratio 1.0 (1.0-1.7) Lipase 149 U/L (73-393) Urine Collection Type Unknown Urine Color Yellow Urine Clarity Clear Urine pH 7.0 Urine Specific [place] 1.020 Urine Protein Negative mg/dL (NEG-TRACE) Urine Glucose (UA) Negative mg/dL (NEG) Urine Ketones (Stick) Negative mg/dL (NEG) Urine Blood Negative (NEG) Urine Nitrite Positive (NEG) Urine Bilirubin Negative (NEG) Urine Urobilinogen Dipstick 0.2 mg/dL (0.2 mg/dL) Urine Leukocyte Esterase Large (NEG) Urine RBC 0 /HPF (0-2) Urine WBC >40 /HPF (0-4) Urine Squamous Epithelial Cells Few /LPF Urine Bacteria Many /HPF (0-FEW) Urine Mucus Mod /LPF Urine Opiates Screen Neg (NEG) Urine Methadone Screen Neg (NEG) Urine Barbiturates Neg (NEG) Urine Phencyclidine Screen Neg (NEG) Urine Amphetamine/Methamphetamine Neg (NEG) Urine Benzodiazepines Screen Neg (NEG) Urine Cocaine Screen Neg (NEG) Urine Cannabinoids Screen Neg (NEG) Urine Ethyl Alcohol Neg (NEG) Laboratory Tests Test 01/26/18 15:30 01/26/18 16:05 White Blood Count 7.2 x10^3/uL (4.0-11.0) Red Blood Count 4.57 x10^6/uL (3.50-5.40) Hemoglobin 14.5 g/dL (12.0-15.5) Hematocrit 41.7 % (36.0-47.0) Mean Corpuscular Volume 91 fL (79-100) Mean Corpuscular Hemoglobin 32 pg (25-35) Mean Corpuscular Hemoglobin Concent 35 g/dL (31-37) Red Cell Distribution Width 13.4 % (11.5-14.5) Platelet Count 203 x10^3/uL (140-400) Neutrophils (%) (Auto) 75 % (31-73) Lymphocytes (%) (Auto) 17 % (24-48) Monocytes (%) (Auto) 6 % (0-9) Eosinophils (%) (Auto) 1 % (0-3) Basophils (%) (Auto) 0 % (0-3) Neutrophils # (Auto) 5.4 x10^3uL (1.8-7.7) Lymphocytes # (Auto) 1.3 x10^3/uL (1.0-4.8) Monocytes # (Auto) 0.5 x10^3/uL (0.0-1.1) Eosinophils # (Auto) 0.1 x10^3/uL (0.0-0.7) Basophils # (Auto) 0.0 x10^3/uL (0.0-0.2) Sodium Level 141 mmol/L (136-145) Potassium Level 4.2 mmol/L (3.5-5.1) Chloride Level 105 mmol/L (98-107) Carbon Dioxide Level 26 mmol/L (21-32) Anion Gap 10 (6-14) Blood Urea Nitrogen 17 mg/dL (7-20) Creatinine 0.8 mg/dL (0.6-1.0) Estimated GFR (Cockcroft-Gault) 71.5 BUN/Creatinine Ratio 21 (6-20) Glucose Level 100 mg/dL (70-99) Calcium Level 9.7 mg/dL (8.5-10.1) Total Bilirubin 0.5 mg/dL (0.2-1.0) Aspartate Amino Transf (AST/SGOT) 73 U/L (15-37) Alanine Aminotransferase (ALT/SGPT) 54 U/L (14-59) Alkaline Phosphatase 180 U/L (46-116) Troponin I Quantitative < 0.017 ng/mL (0.000-0.055) Total Protein 7.5 g/dL (6.4-8.2) Albumin 3.8 g/dL (3.4-5.0) Albumin/Globulin Ratio 1.0 (1.0-1.7) Lipase 149 U/L (73-393) Urine Collection Type Unknown Urine Color Yellow Urine Clarity Clear Urine pH 7.0 Urine Specific [place] 1.020 Urine Protein Negative mg/dL (NEG-TRACE) Urine Glucose (UA) Negative mg/dL (NEG) Urine Ketones (Stick) Negative mg/dL (NEG) Urine Blood Negative (NEG) Urine Nitrite Positive (NEG) Urine Bilirubin Negative (NEG) Urine Urobilinogen Dipstick 0.2 mg/dL (0.2 mg/dL) Urine Leukocyte Esterase Large (NEG) Urine RBC 0 /HPF (0-2) Urine WBC >40 /HPF (0-4) Urine Squamous Epithelial Cells Few /LPF Urine Bacteria Many /HPF (0-FEW) Urine Mucus Mod /LPF Urine Opiates Screen Neg (NEG) Urine Methadone Screen Neg (NEG) Urine Barbiturates Neg (NEG) Urine Phencyclidine Screen Neg (NEG) Urine Amphetamine/Methamphetamine Neg (NEG) Urine Benzodiazepines Screen Neg (NEG) Urine Cocaine Screen Neg (NEG) Urine Cannabinoids Screen Neg (NEG) Urine Ethyl Alcohol Neg (NEG) Medications Current Medications Famotidine (Pepcid Vial) 20 mg 1X ONCE IVP Last administered on 01/26/18at 15: 41; Start 01/26/18 at 15:15; Stop 01/26/18 at 15:16; Status DC Fentanyl Citrate (Fentanyl 2ml Vial) 50 mcg 1X ONCE IV Last administered on at 15:40; Start 01/26/18 at 15:15; Stop 01/26/18 at 15:16; Status DC Ondansetron HCl (Zofran) 4 mg 1X ONCE IV Last administered on 01/26/18at 15:40 ; Start 01/26/18 at 15:30; Stop 01/26/18 at 15:31; Status DC Iohexol (Omnipaque 300 Mg/ml) 75 ml 1X ONCE IV Last administered on at 16:53; Start 01/26/18 at 16:45; Stop 01/26/18 at 16:46; Status DC Info (CONTRAST GIVEN -- Rx MONITORING) 1 each PRN DAILY PRN MC SEE COMMENTS; Start 01/26/18 at 16:45; Stop 01/28/18 at 16:44 Sodium Chloride 1,000 ml @ 1,000 mls/hr 1X ONCE IV ; Start 01/26/18 at 17:00 ; Stop 01/26/18 at 17:59; Status DC Ceftriaxone Sodium 50 ml @ 100 mls/hr 1X ONCE IV ; Start 01/26/18 at 17:30; Stop 01/26/18 at 17:59; Status Cancel Ondansetron HCl (Zofran) 4 mg PRN Q8HRS PRN IV NAUSEA/VOMITING; Start at 17:30; Stop 01/26/18 at 18:01; Status DC Fentanyl Citrate (Fentanyl 2ml Vial) 50 mcg PRN Q2HR PRN IV PAIN Last administered on 01/26/18at 19:16; Start 01/26/18 at 17:30; Stop 01/27/18 at 17 :29 Sodium Chloride 1,000 ml @ 80 mls/hr [id number] IV Last administered on at 06:47; Start 01/26/18 at 17:23; Stop 01/27/18 at 17:22 Acetaminophen (Tylenol) 650 mg PRN Q4HRS PRN PO FEVER; Start 01/26/18 at 17:30 ; Stop 01/27/18 at 17:29 Ondansetron HCl (Zofran) 4 mg PRN Q6HRS PRN IV NAUSEA/VOMITING; Start at 18:00 Al Hydroxide/Mg Hydroxide (Mylanta Plus Xs) 30 ml PRN Q2HR PRN PO HEARTBURN / GAS; Start 01/26/18 at 18:00 Multi-Ingredient Mouthwash/Gargle (Gi Cocktail) 20 ml PRN Q15MIN PRN PO CHEST PAIN; Start 01/26/18 at 18:00 Multi-Ingredient Mouthwash/Gargle (Gi Cocktail) 20 ml 1X ONCE SWSW Last administered on 01/26/18at 20:35; Start 01/26/18 at 18:15; Stop 01/26/18 at 18 :16; Status DC Ceftriaxone Sodium 1 gm/ Dextrose 50 ml @ 100 mls/hr Q24H IV ; Start 01/26/18 at 18:00; Status UNV Aspirin (Brenda Aspirin) 325 mg DAILY PO Last administered on 01/27/18at 08:43; Start 01/27/18 at 09:00 Diphenhydramine HCl (Benadryl) 25 mg PRN QHS PRN PO INSOMNIA; Start 01/26/18 at 18:15 Ceftriaxone Sodium (Rocephin) 1 gm Q24H IVP Last administered on 01/26/18at 21: 37; Start 01/26/18 at 21:00 Labetalol HCl (Normodyne Iv Push) 10 mg PRN Q2HR PRN IVP HYPERTENSION, SEE COMMENTS; Start 01/26/18 at 18:15 Simvastatin (Zocor) 20 mg HS PO Last administered on 01/26/18at 21:37; Start 01/26/18 at 21:00 Acetaminophen/ Hydrocodone Bitart (Lortab 5/325) 1 tab PRN Q6HRS PRN PO MODERATE PAIN Last administered on 01/27/18at 08:43; Start 01/26/18 at 21:00 Lactobacillus Rhamnosus (Culturelle) 1 cap BID PO ; Start 01/27/18 at 21:00 Active Scripts Active Naproxen Sodium 220 Mg Tablet 220 Mg PO BID PRN Reported Aspirin 325 Mg Tablet 325 Mg PO PRN PRN Vitals/I & O Vital Sign - Last 24 Hours 01/26/18 01/26/18 01/26/18 01/26/18 14:50 15:30 15:40 16:30 Temp 97.5 97.5 Pulse 106 92 86 Resp 20 18 20 16 B/P (MAP) 177/88 (117) 141/63 (89) 152/73 (99) Pulse Ox 95 94 97 O2 Delivery Room Air Room Air O2 Flow Rate 96.0 01/26/18 01/26/18 01/26/18 01/26/18 18:45 19:00 19:16 19:30 Temp 97.8 98.1 97.8 98.1 Pulse 90 71 Resp 18 18 16 B/P (MAP) 153/71 (98) 133/72 (92) Pulse Ox 92 91 O2 Delivery Room Air Room Air Room Air Room Air 01/26/18 01/26/18 01/26/18 01/26/18 19:46 21:37 22:40 23:00 Temp 98.1 98.1 Pulse 88 Resp 16 16 18 18 B/P (MAP) 139/73 (95) Pulse Ox 94 O2 Delivery Room Air Room Air Room Air 01/27/18 01/27/18 01/27/18 01/27/18 03:00 07:00 08:43 09:45 Temp 98.1 97.9 98.1 97.9 Pulse 74 77 Resp 18 18 B/P (MAP) 107/54 (71) 124/46 (72) Pulse Ox 95 90 O2 Delivery Room Air Room Air Room Air Room Air 01/27/18 11:00 Temp 97.5 97.5 Pulse 69 Resp 18 B/P (MAP) 133/63 (86) Pulse Ox 90 O2 Delivery Room Air Intake and Output 01/26/18 01/26/18 01/27/18 15:00 23:00 07:00 Intake Total 900 ml 2550 ml Output Total 500 ml 400 ml Balance 400 ml 2150 ml DANIEL NANCE III DO Jan 27, 2018 13:55
[2018-01-27 15:00] VITALS: BP 127/56
--- NOTE | 2018-01-27 17:00 | PDOC2 ---
UROLOGY CONSULT Date of Consult Date of Consult DATE: 01/27/18 TIME: 16:54 Reason for Consult Reason for Consult: recurrent UTIs Referring Physician Referring Physician: Dr. Buckner Source Source: Patient History of Present Illness Reason for Visit: 67 yo female with 4-5 UTIs since hysterectomy in spring. UTI symptoms usually cloudy urine, no other bother. Currently denies any urianry symptoms. UA this admission with WBCs, bacteria, squamous cells; urine culture with mixed growth consistent with skin jaye contamination. She reports vaginal prolapse prior to hysterectomy managed with pessary. Prolapsed recurred about 2 weeks after hysterectomy and worsening since then. Has had difficulty emptying bladder since hysterectomy. She is scheduled for vaginal prolapse repair by Dr. Marie, [employer] at [facility] in February. Past Medical History Cardiovascular: No pertinent hx, Hyperlipidemia Pulmonary: COPD GI: No pertinent hx Heme/Onc: No pertinent hx Infectious disease: No pertinent hx Renal/: No pertinent hx Endocrine: No pertinent hx Past Surgical History Past Surgical History: Appendectomy, Tubal Ligation, Hysterectomy Family History Family History: Hypertension Social History Quit ALCOHOL: none Drugs: None Current Medications Current Medications Current Medications Acetaminophen (Tylenol) 650 mg PRN Q4HRS PRN PO FEVER; Start 01/26/18 at 17:30 ; Stop 01/27/18 at 17:29 Acetaminophen/ Hydrocodone Bitart (Lortab 5/325) 1 tab PRN Q6HRS PRN PO MODERATE PAIN Last administered on 01/27/18at 15:58; Start 01/26/18 at 21:00 Al Hydroxide/Mg Hydroxide (Mylanta Plus Xs) 30 ml PRN Q2HR PRN PO HEARTBURN / GAS; Start 01/26/18 at 18:00 Aspirin (Brenda Aspirin) 325 mg DAILY PO Last administered on 01/27/18at 08:43; Start 01/27/18 at 09:00 Ceftriaxone Sodium 1 gm/ Dextrose 50 ml @ 100 mls/hr Q24H IV ; Start 01/26/18 at 18:00; Status UNV Ceftriaxone Sodium 50 ml @ 100 mls/hr 1X ONCE IV ; Start 01/26/18 at 17:30; Stop 01/26/18 at 17:59; Status Cancel Ceftriaxone Sodium (Rocephin) 1 gm Q24H IVP Last administered on 10/26/18at 21: 37; Start 01/26/18 at 21:00 Diphenhydramine HCl (Benadryl) 25 mg PRN QHS PRN PO INSOMNIA; Start 01/26/18 at 18:15 Fentanyl Citrate (Fentanyl 2ml Vial) 50 mcg PRN Q2HR PRN IV PAIN Last administered on 01/26/18at 19:16; Start 01/26/18 at 17:30; Stop 01/27/18 at 17 :29 Labetalol HCl (Normodyne Iv Push) 10 mg PRN Q2HR PRN IVP HYPERTENSION, SEE COMMENTS; Start 01/26/18 at 18:15 Lactobacillus Rhamnosus (Culturelle) 1 cap BID PO ; Start 01/27/18 at 21:00 Multi-Ingredient Mouthwash/Gargle (Gi Cocktail) 20 ml 1X ONCE SWSW Last administered on 01/26/18at 20:35; Start 01/26/18 at 18:15; Stop 01/26/18 at 18 :16; Status DC Multi-Ingredient Mouthwash/Gargle (Gi Cocktail) 20 ml PRN Q15MIN PRN PO CHEST PAIN; Start 01/26/18 at 18:00 Ondansetron HCl (Zofran) 4 mg PRN Q6HRS PRN IV NAUSEA/VOMITING; Start at 18:00 Ondansetron HCl (Zofran) 4 mg PRN Q8HRS PRN IV NAUSEA/VOMITING; Start at 17:30; Stop 01/26/18 at 18:01; Status DC Simvastatin (Zocor) 20 mg HS PO Last administered on 01/26/18at 21:37; Start 01/26/18 at 21:00 Sodium Chloride 1,000 ml @ 80 mls/hr [id number] IV Last administered on at 06:47; Start 01/26/18 at 17:23; Stop 01/27/18 at 17:22 Sodium Chloride 1,000 ml @ 1,000 mls/hr 1X ONCE IV ; Start 01/26/18 at 17:00 ; Stop 01/26/18 at 17:59; Status DC Allergies Allergies: Coded Allergies: pregabalin (Unverified Allergy, Intermediate, 01/27/18) "MAKES ME STUPID" "makes me crazy" ROS Review Of Systems: CONSTITUTIONAL: No fever or chills EYES: No recent changes SKIN: No rash or itching CARDIOVASCULAR: No chest pain, syncope, palpitations, or edema RESPIRATORY: No SOB or cough GASTROINTESTINAL: epigastric discomfort NEUROLOGICAL: No headaches or weakness ENDOCRINE: No cold or heat intolerance GENITOURINARY: No urgency or frequency of urination MUSCULOSKELETAL: No back pain or joint pain LYMPHATICS: No enlarged lymph nodes PSYCHIATRIC: No anxiety or depression Physical Exam Physical Exam: General: Pleasant, no acute distress, well groomed Eyes: conjunctiva anicteric, eyes full range of motion ENT: moist oral mucosa, normal dentition Neck: Trachea midline, no masses Respiratory: unlabored breathing, not using accessory muscles, no crackles or wheezes Cardiovascular: Regular rate and rhythm, no peripheral edema Abdomen: nontender, nondistended, no hepatosplenomegaly, no masses Skin: no rashes or skin lesions on visualized skin Psych: normal mood, affect. Alert and oriented x 3. Pelvic: grade 3 cystocele and enterocele. no leakage with cough with prolapse reduction. Vitals VITALS Vital Signs Date Time Temp Pulse Resp B/P (MAP) Pulse Ox O2 Delivery O2 Flow Rate FiO2 01/27/18 15:58 Room Air 01/27/18 15:00 97.6 73 18 127/56 (79) 91 97.6 01/26/18 16:30 96.0 Labs Labs Laboratory Tests Test 01/26/18 15:30 01/26/18 16:05 White Blood Count 7.2 x10^3/uL (4.0-11.0) Red Blood Count 4.57 x10^6/uL (3.50-5.40) Hemoglobin 14.5 g/dL (12.0-15.5) Hematocrit 41.7 % (36.0-47.0) Mean Corpuscular Volume 91 fL (79-100) Mean Corpuscular Hemoglobin 32 pg (25-35) Mean Corpuscular Hemoglobin Concent 35 g/dL (31-37) Red Cell Distribution Width 13.4 % (11.5-14.5) Platelet Count 203 x10^3/uL (140-400) Neutrophils (%) (Auto) 75 % (31-73) Lymphocytes (%) (Auto) 17 % (24-48) Monocytes (%) (Auto) 6 % (0-9) Eosinophils (%) (Auto) 1 % (0-3) Basophils (%) (Auto) 0 % (0-3) Neutrophils # (Auto) 5.4 x10^3uL (1.8-7.7) Lymphocytes # (Auto) 1.3 x10^3/uL (1.0-4.8) Monocytes # (Auto) 0.5 x10^3/uL (0.0-1.1) Eosinophils # (Auto) 0.1 x10^3/uL (0.0-0.7) Basophils # (Auto) 0.0 x10^3/uL (0.0-0.2) Sodium Level 141 mmol/L (136-145) Potassium Level 4.2 mmol/L (3.5-5.1) Chloride Level 105 mmol/L (98-107) Carbon Dioxide Level 26 mmol/L (21-32) Anion Gap 10 (6-14) Blood Urea Nitrogen 17 mg/dL (7-20) Creatinine 0.8 mg/dL (0.6-1.0) Estimated GFR (Cockcroft-Gault) 71.5 BUN/Creatinine Ratio 21 (6-20) Glucose Level 100 mg/dL (70-99) Calcium Level 9.7 mg/dL (8.5-10.1) Total Bilirubin 0.5 mg/dL (0.2-1.0) Aspartate Amino Transf (AST/SGOT) 73 U/L (15-37) Alanine Aminotransferase (ALT/SGPT) 54 U/L (14-59) Alkaline Phosphatase 180 U/L (46-116) Troponin I Quantitative < 0.017 ng/mL (0.000-0.055) Total Protein 7.5 g/dL (6.4-8.2) Albumin 3.8 g/dL (3.4-5.0) Albumin/Globulin Ratio 1.0 (1.0-1.7) Lipase 149 U/L (73-393) Urine Collection Type Unknown Urine Color Yellow Urine Clarity Clear Urine pH 7.0 Urine Specific [place] 1.020 Urine Protein Negative mg/dL (NEG-TRACE) Urine Glucose (UA) Negative mg/dL (NEG) Urine Ketones (Stick) Negative mg/dL (NEG) Urine Blood Negative (NEG) Urine Nitrite Positive (NEG) Urine Bilirubin Negative (NEG) Urine Urobilinogen Dipstick 0.2 mg/dL (0.2 mg/dL) Urine Leukocyte Esterase Large (NEG) Urine RBC 0 /HPF (0-2) Urine WBC >40 /HPF (0-4) Urine Squamous Epithelial Cells Few /LPF Urine Bacteria Many /HPF (0-FEW) Urine Mucus Mod /LPF Urine Opiates Screen Neg (NEG) Urine Methadone Screen Neg (NEG) Urine Barbiturates Neg (NEG) Urine Phencyclidine Screen Neg (NEG) Urine Amphetamine/Methamphetamine Neg (NEG) Urine Benzodiazepines Screen Neg (NEG) Urine Cocaine Screen Neg (NEG) Urine Cannabinoids Screen Neg (NEG) Urine Ethyl Alcohol Neg (NEG) Assessment/Plan Assessment/Plan Encouraged her to proceed with vaginal prolapse repair as scheduled in a few weeks with Dr. Marie. Bladder emptying should then improve and lower risk of recurrent UTIs. I encouraged her to follow up with me after that if she continues to have UTIs. TRINI WATTS MD Jan 27, 2018 16:59
[2018-01-27 19:00] VITALS: BP 145/62
--- NOTE | 2018-01-27 19:59 | PDOC2 ---
CONSULT Date of Consult Date of Consult DATE: 01/27/18 TIME: 19:49 History of Present Illness Reason for Visit: This is a 67 yo female with over one year history of intermittent upper abd pain - onset not predictable- not after exertion, meds or food- but has resulted in ER visits in past- mostly epigastric and LUQ with band like radiation but no chest pain. She saw GI and EGD was planned last year but only after she was to have cardiology w/u- but she did not follow those instructions- She claims negative cath by [facility] 2009 and does not think this pain is cardiac, so has not had further work up. No EGD was done and she has not had US, colonoscopy etc. She does take NSAIDS intermittently for headaches, including recently. Has regular BM without bleeding. No f/c jaundice etc Past Medical History Cardiovascular: No pertinent hx, Hyperlipidemia Pulmonary: COPD GI: No pertinent hx Heme/Onc: No pertinent hx Infectious disease: No pertinent hx Renal/: No pertinent hx Endocrine: No pertinent hx Past Surgical History Past Surgical History: Appendectomy, Tubal Ligation, Hysterectomy Family History Family History: Hypertension Social History Quit ALCOHOL: none Drugs: None Current Problem List Problem List Problems Medical Problems: (1) Pyelonephritis Status: Acute Current Medications Current Medications Current Medications Famotidine (Pepcid Vial) 20 mg 1X ONCE IVP Last administered on 01/26/18at 15: 41; Start 01/26/18 at 15:15; Stop 01/26/18 at 15:16; Status DC Fentanyl Citrate (Fentanyl 2ml Vial) 50 mcg 1X ONCE IV Last administered on at 15:40; Start 01/26/18 at 15:15; Stop 01/26/18 at 15:16; Status DC Ondansetron HCl (Zofran) 4 mg 1X ONCE IV Last administered on 01/26/18at 15:40 ; Start 01/26/18 at 15:30; Stop 01/26/18 at 15:31; Status DC Iohexol (Omnipaque 300 Mg/ml) 75 ml 1X ONCE IV Last administered on at 16:53; Start 01/26/18 at 16:45; Stop 01/26/18 at 16:46; Status DC Info (CONTRAST GIVEN -- Rx MONITORING) 1 each PRN DAILY PRN MC SEE COMMENTS; Start 01/26/18 at 16:45; Stop 01/28/18 at 16:44 Sodium Chloride 1,000 ml @ 1,000 mls/hr 1X ONCE IV ; Start 01/26/18 at 17:00 ; Stop 01/26/18 at 17:59; Status DC Ceftriaxone Sodium 50 ml @ 100 mls/hr 1X ONCE IV ; Start 01/26/18 at 17:30; Stop 01/26/18 at 17:59; Status Cancel Ondansetron HCl (Zofran) 4 mg PRN Q8HRS PRN IV NAUSEA/VOMITING; Start at 17:30; Stop 01/26/18 at 18:01; Status DC Fentanyl Citrate (Fentanyl 2ml Vial) 50 mcg PRN Q2HR PRN IV PAIN Last administered on 01/26/18at 19:16; Start 01/26/18 at 17:30; Stop 01/27/18 at 17 :29; Status DC Sodium Chloride 1,000 ml @ 80 mls/hr [id number] IV Last administered on at 06:47; Start 01/26/18 at 17:23; Stop 01/27/18 at 17:22; Status DC Acetaminophen (Tylenol) 650 mg PRN Q4HRS PRN PO FEVER; Start 01/26/18 at 17:30 ; Stop 01/27/18 at 17:29; Status DC Ondansetron HCl (Zofran) 4 mg PRN Q6HRS PRN IV NAUSEA/VOMITING; Start at 18:00 Al Hydroxide/Mg Hydroxide (Mylanta Plus Xs) 30 ml PRN Q2HR PRN PO HEARTBURN / GAS; Start 01/26/18 at 18:00 Multi-Ingredient Mouthwash/Gargle (Gi Cocktail) 20 ml PRN Q15MIN PRN PO CHEST PAIN; Start 01/26/18 at 18:00 Multi-Ingredient Mouthwash/Gargle (Gi Cocktail) 20 ml 1X ONCE SWSW Last administered on 01/26/18at 20:35; Start 01/26/18 at 18:15; Stop 01/26/18 at 18 :16; Status DC Ceftriaxone Sodium 1 gm/ Dextrose 50 ml @ 100 mls/hr Q24H IV ; Start 01/26/18 at 18:00; Status UNV Aspirin (Brenda Aspirin) 325 mg DAILY PO Last administered on 01/27/18at 08:43; Start 01/27/18 at 09:00 Diphenhydramine HCl (Benadryl) 25 mg PRN QHS PRN PO INSOMNIA; Start 01/26/18 at 18:15 Ceftriaxone Sodium (Rocephin) 1 gm Q24H IVP Last administered on 01/26/18at 21: 37; Start 01/26/18 at 21:00 Labetalol HCl (Normodyne Iv Push) 10 mg PRN Q2HR PRN IVP HYPERTENSION, SEE COMMENTS; Start 01/26/18 at 18:15 Simvastatin (Zocor) 20 mg HS PO Last administered on 01/26/18at 21:37; Start 01/26/18 at 21:00 Acetaminophen/ Hydrocodone Bitart (Lortab 5/325) 1 tab PRN Q6HRS PRN PO MODERATE PAIN Last administered on 01/27/18at 15:58; Start 01/26/18 at 21:00 Lactobacillus Rhamnosus (Culturelle) 1 cap BID PO ; Start 01/27/18 at 21:00 Active Scripts Active Naproxen Sodium 220 Mg Tablet 220 Mg PO BID PRN Reported Aspirin 325 Mg Tablet 325 Mg PO PRN PRN Allergies Allergies: Coded Allergies: pregabalin (Unverified Allergy, Intermediate, 01/27/18) "MAKES ME STUPID" "makes me crazy" ROS Gastrointestinal: Yes Abdominal Pain Genitourinary: YES Frequency Physical Exam General: Alert, Oriented X3, Cooperative HEENT: PERRLA Lungs: Clear to auscultation Heart: Regular rate, Normal S1, Normal S2 Abdomen: Normal bowel sounds, No hepatosplenomegaly, Other (mildl epigastric and LUQ tenderness) Extremities: No clubbing, No cyanosis Psych/Mental Status: Mental status NL Vitals VITALS Vital Signs Date Time Temp Pulse Resp B/P (MAP) Pulse Ox O2 Delivery O2 Flow Rate FiO2 01/27/18 17:36 91 Room Air 01/27/18 15:00 97.6 73 18 127/56 (79) 97.6 01/26/18 16:30 96.0 Labs Labs Laboratory Tests Test 01/26/18 15:30 01/26/18 16:05 White Blood Count 7.2 x10^3/uL (4.0-11.0) Red Blood Count 4.57 x10^6/uL (3.50-5.40) Hemoglobin 14.5 g/dL (12.0-15.5) Hematocrit 41.7 % (36.0-47.0) Mean Corpuscular Volume 91 fL (79-100) Mean Corpuscular Hemoglobin 32 pg (25-35) Mean Corpuscular Hemoglobin Concent 35 g/dL (31-37) Red Cell Distribution Width 13.4 % (11.5-14.5) Platelet Count 203 x10^3/uL (140-400) Neutrophils (%) (Auto) 75 % (31-73) Lymphocytes (%) (Auto) 17 % (24-48) Monocytes (%) (Auto) 6 % (0-9) Eosinophils (%) (Auto) 1 % (0-3) Basophils (%) (Auto) 0 % (0-3) Neutrophils # (Auto) 5.4 x10^3uL (1.8-7.7) Lymphocytes # (Auto) 1.3 x10^3/uL (1.0-4.8) Monocytes # (Auto) 0.5 x10^3/uL (0.0-1.1) Eosinophils # (Auto) 0.1 x10^3/uL (0.0-0.7) Basophils # (Auto) 0.0 x10^3/uL (0.0-0.2) Sodium Level 141 mmol/L (136-145) Potassium Level 4.2 mmol/L (3.5-5.1) Chloride Level 105 mmol/L (98-107) Carbon Dioxide Level 26 mmol/L (21-32) Anion Gap 10 (6-14) Blood Urea Nitrogen 17 mg/dL (7-20) Creatinine 0.8 mg/dL (0.6-1.0) Estimated GFR (Cockcroft-Gault) 71.5 BUN/Creatinine Ratio 21 (6-20) Glucose Level 100 mg/dL (70-99) Calcium Level 9.7 mg/dL (8.5-10.1) Total Bilirubin 0.5 mg/dL (0.2-1.0) Aspartate Amino Transf (AST/SGOT) 73 U/L (15-37) Alanine Aminotransferase (ALT/SGPT) 54 U/L (14-59) Alkaline Phosphatase 180 U/L (46-116) Troponin I Quantitative < 0.017 ng/mL (0.000-0.055) Total Protein 7.5 g/dL (6.4-8.2) Albumin 3.8 g/dL (3.4-5.0) Albumin/Globulin Ratio 1.0 (1.0-1.7) Lipase 149 U/L (73-393) Urine Collection Type Unknown Urine Color Yellow Urine Clarity Clear Urine pH 7.0 Urine Specific [place] 1.020 Urine Protein Negative mg/dL (NEG-TRACE) Urine Glucose (UA) Negative mg/dL (NEG) Urine Ketones (Stick) Negative mg/dL (NEG) Urine Blood Negative (NEG) Urine Nitrite Positive (NEG) Urine Bilirubin Negative (NEG) Urine Urobilinogen Dipstick 0.2 mg/dL (0.2 mg/dL) Urine Leukocyte Esterase Large (NEG) Urine RBC 0 /HPF (0-2) Urine WBC >40 /HPF (0-4) Urine Squamous Epithelial Cells Few /LPF Urine Bacteria Many /HPF (0-FEW) Urine Mucus Mod /LPF Urine Opiates Screen Neg (NEG) Urine Methadone Screen Neg (NEG) Urine Barbiturates Neg (NEG) Urine Phencyclidine Screen Neg (NEG) Urine Amphetamine/Methamphetamine Neg (NEG) Urine Benzodiazepines Screen Neg (NEG) Urine Cocaine Screen Neg (NEG) Urine Cannabinoids Screen Neg (NEG) Urine Ethyl Alcohol Neg (NEG) Images Images CT abd- hiatal hernia o/w negative Assessment/Plan Assessment/Plan Recurrent epigastric and LUQ pain- no clear trigger - last episode was 3 months ago- has taken some NSAIDs for headache but no other inciting events reported- these symptoms have been occurring for over a year and saw GI electively but did not want cardiology w/u before EGD so did neither- sounds like ulcer , gastritis, or biliary Plan PPI BID prn AA US to r/o gallstones and if EGD negative, consider PIPIDA later EGD on Monday Will try to arrange elective colonoscopy (screening- first one) later as outpt. VANESSA OBRIEN MD Jan 27, 2018 19:59
[2018-01-27] MEDS ORDERED: CALCIUM CARBONATE 500 MG TAB.CHEW PO PRN (20:45)
[2018-01-27] MEDS ORDERED: MAG HYDROX/ALUMINUM HYD/SIMETH 30 ML ORAL.SUSP PO PRN (20:45)
[2018-01-27] MEDS ORDERED: ACETAMINOPHEN 325 MG TABLET. PO PRN (21:15)
[2018-01-27] MEDS: PANTOPRAZOLE 40 MG TABLET.DR. PO SCH (21:29)
[2018-01-27] MEDS: cefTRIAXone IV Push 1 GM VIAL. IVP SCH (21:29)
[2018-01-27] MEDS: LACTOBACILLUS RHAMNOSUS GG 1 CAPSULE. PO SCH (21:29)
[2018-01-27] MEDS: SIMVASTATIN 20 MG TABLET PO SCH (21:29)
[2018-01-27 23:00] VITALS: BP 145/66
[2018-01-28] MEDS: HYDROcodone/APAP 5/325MG 1 TAB TABLET PO PRN ×2 (01:42→08:55)
[2018-01-28 03:00] VITALS: BP 119/70
[2018-01-28 07:00] VITALS: BP 133/78
[2018-01-28] MEDS: PANTOPRAZOLE 40 MG TABLET.DR. PO SCH (07:30)
[2018-01-28] MEDS ORDERED: PANTOPRAZOLE IV PUSH 40 MG VIAL. IVP ONE (07:45)
[2018-01-28] MEDS: ASPIRIN 325 MG TABLET PO SCH (08:55)
[2018-01-28] MEDS: LACTOBACILLUS RHAMNOSUS GG 1 CAPSULE. PO SCH (08:55)
--- NOTE | 2018-01-28 12:05 | PDOC ---
GI PROGRESS NOTES Date Date/Time DATE: 01/28/18 TIME: 12:02 Subjective Subjective upper abd pain improved- tolerating diet Objective Vitals Vital Signs Date Time Temp Pulse Resp B/P (MAP) Pulse Ox O2 Delivery O2 Flow Rate FiO2 01/28/18 08:55 97 Room Air 01/28/18 08:15 Room Air 01/28/18 07:00 97.9 67 18 133/78 (96) 96 Room Air 97.9 01/28/18 03:00 97.9 94 14 119/70 (86) 97 Room Air 97.9 01/28/18 02:42 16 92 Room Air 96.0 01/28/18 01:42 16 92 Room Air 96.0 01/27/18 23:00 98.9 73 18 145/66 (92) 92 Room Air 98.9 01/27/18 20:00 Room Air 96.0 01/27/18 19:00 97.7 75 18 145/62 (89) 90 Room Air 97.7 01/27/18 15:58 Room Air 01/27/18 15:00 97.6 73 18 127/56 (79) 91 Room Air 97.6 Physical Exam Physical Exam chest- clear abd -soft nontender Assessment Assessment Upper abd pain- needs regular PPI therapy and EGD and US Since improved, apparently being discharged so she will call our office to set up outpt EGD and US this week Plan Plan Upper abd pain improved- needs PPI, EGD and US- apparently being discharged - so will call our office to arrange as outpt this week VANESSA OBRIEN MD Jan 28, 2018 12:05
[2018-01-28 12:33] LABS: BASO % 1 % (0-3); EOS # 0.1 x10^3/uL (0.0-0.7); EOS % 2 % (0-3); HEMATOCRIT 38.9 % (36.0-47.0); HEMOGLOBIN 13.7 g/dL (12.0-15.5); LYMPH # 1.5 x10^3/uL (1.0-4.8); LYMPH % 32 % (24-48); MEAN CORPUSCULAR HEMOGLOBIN 32 pg (25-35); MEAN CORPUSCULAR HGB CONC 35 g/dL (31-37); MEAN CORPUSCULAR VOLUME 91 fL (79-100); MONO # 0.2 x10^3/uL (0.0-1.1); MONO % 5 % (0-9); NEUT # 2.8 x10^3uL (1.8-7.7); NEUT % 60 % (31-73); PLATELET COUNT 226 x10^3/uL (140-400); RED BLOOD COUNT 4.27 x10^6/uL (3.50-5.40); RED CELL DISTRIBUTION WIDTH 13.3 % (11.5-14.5); WHITE BLOOD COUNT 4.8 x10^3/uL (4.0-11.0)
[2018-01-28 12:50] LABS: CALCIUM 8.9 mg/dL (8.5-10.1); CREATININE 0.9 mg/dL (0.6-1.0); GFR 62.5; POTASSIUM 3.6 mmol/L (3.5-5.1)
--- NOTE | 2018-01-28 14:02 | PDOC ---
PROGRESS NOTES Chief Complaint Chief Complaint Acute on chronic epigastric pain Incidental UTI Incidental sliding hiatal hernia H/o HTN History of Present Illness History of Present Illness Pt seen and examined Pt states feeling better today and is ready for d/c Discussed w/RN Vitals Vitals Vital Signs Date Time Temp Pulse Resp B/P (MAP) Pulse Ox O2 Delivery O2 Flow Rate FiO2 01/28/18 12:20 97 Room Air 01/28/18 07:00 97.9 67 18 133/78 (96) 97.9 01/28/18 02:42 96.0 Physical Exam Physical Exam Neck: Supple, no JVD General: Alert, Oriented X3, Cooperative, No acute distress Heart: Regular rate, Normal S1, Normal S2, No murmurs Lungs: Clear Abdomen: Normal bowel sounds, Soft, No tenderness, Other Extremities: No clubbing, No cyanosis, No edema Skin: No rashes, No breakdown Labs LABS Laboratory Tests Test 01/28/18 12:00 White Blood Count 4.8 x10^3/uL (4.0-11.0) Red Blood Count 4.27 x10^6/uL (3.50-5.40) Hemoglobin 13.7 g/dL (12.0-15.5) Hematocrit 38.9 % (36.0-47.0) Mean Corpuscular Volume 91 fL (79-100) Mean Corpuscular Hemoglobin 32 pg (25-35) Mean Corpuscular Hemoglobin Concent 35 g/dL (31-37) Red Cell Distribution Width 13.3 % (11.5-14.5) Platelet Count 226 x10^3/uL (140-400) Neutrophils (%) (Auto) 60 % (31-73) Lymphocytes (%) (Auto) 32 % (24-48) Monocytes (%) (Auto) 5 % (0-9) Eosinophils (%) (Auto) 2 % (0-3) Basophils (%) (Auto) 1 % (0-3) Neutrophils # (Auto) 2.8 x10^3uL (1.8-7.7) Lymphocytes # (Auto) 1.5 x10^3/uL (1.0-4.8) Monocytes # (Auto) 0.2 x10^3/uL (0.0-1.1) Eosinophils # (Auto) 0.1 x10^3/uL (0.0-0.7) Basophils # (Auto) 0.0 x10^3/uL (0.0-0.2) Sodium Level 143 mmol/L (136-145) Potassium Level 3.6 mmol/L (3.5-5.1) Chloride Level 106 mmol/L (98-107) Carbon Dioxide Level 31 mmol/L (21-32) Anion Gap 6 (6-14) Blood Urea Nitrogen 11 mg/dL (7-20) Creatinine 0.9 mg/dL (0.6-1.0) Estimated GFR (Cockcroft-Gault) 62.5 Glucose Level 132 mg/dL (70-99) Calcium Level 8.9 mg/dL (8.5-10.1) Review of Systems Review of Systems Pt reports feeling better today, her pain has improved and is ready to go home C/o mild low back pain Denies chest pain, SOB, abdominal pain Assessment and Plan Assessmemt and Plan Problems Medical Problems: (1) Pyelonephritis Status: Acute Assessment: Acute on chronic epigastric pain Incidental UTI Incidental sliding hiatal hernia H/o HTN Plan: Ready for d/c to home today PO abx upon d/c PO lortab 5mg q4 upon d/c F/u w/providers at [facility] Colonoscopy as outpatient Comment Review of Relevant I have reviewed the following items regina (where applicable) has been applied. Labs Laboratory Tests Test 01/26/18 15:30 01/26/18 16:05 01/28/18 12:00 White Blood Count 7.2 x10^3/uL (4.0-11.0) 4.8 x10^3/uL (4.0-11.0) Red Blood Count 4.57 x10^6/uL (3.50-5.40) 4.27 x10^6/uL (3.50-5.40) Hemoglobin 14.5 g/dL (12.0-15.5) 13.7 g/dL (12.0-15.5) Hematocrit 41.7 % (36.0-47.0) 38.9 % (36.0-47.0) Mean Corpuscular Volume 91 fL (79-100) 91 fL (79-100) Mean Corpuscular Hemoglobin 32 pg (25-35) 32 pg (25-35) Mean Corpuscular Hemoglobin Concent 35 g/dL (31-37) 35 g/dL (31-37) Red Cell Distribution Width 13.4 % (11.5-14.5) 13.3 % (11.5-14.5) Platelet Count 203 x10^3/uL (140-400) 226 x10^3/uL (140-400) Neutrophils (%) (Auto) 75 % (31-73) 60 % (31-73) Lymphocytes (%) (Auto) 17 % (24-48) 32 % (24-48) Monocytes (%) (Auto) 6 % (0-9) 5 % (0-9) Eosinophils (%) (Auto) 1 % (0-3) 2 % (0-3) Basophils (%) (Auto) 0 % (0-3) 1 % (0-3) Neutrophils # (Auto) 5.4 x10^3uL (1.8-7.7) 2.8 x10^3uL (1.8-7.7) Lymphocytes # (Auto) 1.3 x10^3/uL (1.0-4.8) 1.5 x10^3/uL (1.0-4.8) Monocytes # (Auto) 0.5 x10^3/uL (0.0-1.1) 0.2 x10^3/uL (0.0-1.1) Eosinophils # (Auto) 0.1 x10^3/uL (0.0-0.7) 0.1 x10^3/uL (0.0-0.7) Basophils # (Auto) 0.0 x10^3/uL (0.0-0.2) 0.0 x10^3/uL (0.0-0.2) Sodium Level 141 mmol/L (136-145) 143 mmol/L (136-145) Potassium Level 4.2 mmol/L (3.5-5.1) 3.6 mmol/L (3.5-5.1) Chloride Level 105 mmol/L (98-107) 106 mmol/L (98-107) Carbon Dioxide Level 26 mmol/L (21-32) 31 mmol/L (21-32) Anion Gap 10 (6-14) 6 (6-14) Blood Urea Nitrogen 17 mg/dL (7-20) 11 mg/dL (7-20) Creatinine 0.8 mg/dL (0.6-1.0) 0.9 mg/dL (0.6-1.0) Estimated GFR (Cockcroft-Gault) 71.5 62.5 BUN/Creatinine Ratio 21 (6-20) Glucose Level 100 mg/dL (70-99) 132 mg/dL (70-99) Calcium Level 9.7 mg/dL (8.5-10.1) 8.9 mg/dL (8.5-10.1) Total Bilirubin 0.5 mg/dL (0.2-1.0) Aspartate Amino Transf (AST/SGOT) 73 U/L (15-37) Alanine Aminotransferase (ALT/SGPT) 54 U/L (14-59) Alkaline Phosphatase 180 U/L (46-116) Troponin I Quantitative < 0.017 ng/mL (0.000-0.055) Total Protein 7.5 g/dL (6.4-8.2) Albumin 3.8 g/dL (3.4-5.0) Albumin/Globulin Ratio 1.0 (1.0-1.7) Lipase 149 U/L (73-393) Urine Collection Type Unknown Urine Color Yellow Urine Clarity Clear Urine pH 7.0 Urine Specific [place] 1.020 Urine Protein Negative mg/dL (NEG-TRACE) Urine Glucose (UA) Negative mg/dL (NEG) Urine Ketones (Stick) Negative mg/dL (NEG) Urine Blood Negative (NEG) Urine Nitrite Positive (NEG) Urine Bilirubin Negative (NEG) Urine Urobilinogen Dipstick 0.2 mg/dL (0.2 mg/dL) Urine Leukocyte Esterase Large (NEG) Urine RBC 0 /HPF (0-2) Urine WBC >40 /HPF (0-4) Urine Squamous Epithelial Cells Few /LPF Urine Bacteria Many /HPF (0-FEW) Urine Mucus Mod /LPF Urine Opiates Screen Neg (NEG) Urine Methadone Screen Neg (NEG) Urine Barbiturates Neg (NEG) Urine Phencyclidine Screen Neg (NEG) Urine Amphetamine/Methamphetamine Neg (NEG) Urine Benzodiazepines Screen Neg (NEG) Urine Cocaine Screen Neg (NEG) Urine Cannabinoids Screen Neg (NEG) Urine Ethyl Alcohol Neg (NEG) Laboratory Tests Test 01/28/18 12:00 White Blood Count 4.8 x10^3/uL (4.0-11.0) Red Blood Count 4.27 x10^6/uL (3.50-5.40) Hemoglobin 13.7 g/dL (12.0-15.5) Hematocrit 38.9 % (36.0-47.0) Mean Corpuscular Volume 91 fL (79-100) Mean Corpuscular Hemoglobin 32 pg (25-35) Mean Corpuscular Hemoglobin Concent 35 g/dL (31-37) Red Cell Distribution Width 13.3 % (11.5-14.5) Platelet Count 226 x10^3/uL (140-400) Neutrophils (%) (Auto) 60 % (31-73) Lymphocytes (%) (Auto) 32 % (24-48) Monocytes (%) (Auto) 5 % (0-9) Eosinophils (%) (Auto) 2 % (0-3) Basophils (%) (Auto) 1 % (0-3) Neutrophils # (Auto) 2.8 x10^3uL (1.8-7.7) Lymphocytes # (Auto) 1.5 x10^3/uL (1.0-4.8) Monocytes # (Auto) 0.2 x10^3/uL (0.0-1.1) Eosinophils # (Auto) 0.1 x10^3/uL (0.0-0.7) Basophils # (Auto) 0.0 x10^3/uL (0.0-0.2) Sodium Level 143 mmol/L (136-145) Potassium Level 3.6 mmol/L (3.5-5.1) Chloride Level 106 mmol/L (98-107) Carbon Dioxide Level 31 mmol/L (21-32) Anion Gap 6 (6-14) Blood Urea Nitrogen 11 mg/dL (7-20) Creatinine 0.9 mg/dL (0.6-1.0) Estimated GFR (Cockcroft-Gault) 62.5 Glucose Level 132 mg/dL (70-99) Calcium Level 8.9 mg/dL (8.5-10.1) Microbiology 01/26/18 Blood Culture - Preliminary, Resulted NO GROWTH AFTER 1 DAY Medications Current Medications Famotidine (Pepcid Vial) 20 mg 1X ONCE IVP Last administered on 01/26/18at 15: 41; Start 01/26/18 at 15:15; Stop 01/26/18 at 15:16; Status DC Fentanyl Citrate (Fentanyl 2ml Vial) 50 mcg 1X ONCE IV Last administered on at 15:40; Start 01/26/18 at 15:15; Stop 01/26/18 at 15:16; Status DC Ondansetron HCl (Zofran) 4 mg 1X ONCE IV Last administered on 01/26/18at 15:40 ; Start 01/26/18 at 15:30; Stop 01/26/18 at 15:31; Status DC Iohexol (Omnipaque 300 Mg/ml) 75 ml 1X ONCE IV Last administered on at 16:53; Start 01/26/18 at 16:45; Stop 01/26/18 at 16:46; Status DC Info (CONTRAST GIVEN -- Rx MONITORING) 1 each PRN DAILY PRN MC SEE COMMENTS; Start 01/26/18 at 16:45; Stop 01/28/18 at 12:24; Status DC Sodium Chloride 1,000 ml @ 1,000 mls/hr 1X ONCE IV ; Start 01/26/18 at 17:00 ; Stop 01/26/18 at 17:59; Status DC Ceftriaxone Sodium 50 ml @ 100 mls/hr 1X ONCE IV ; Start 01/26/18 at 17:30; Stop 01/26/18 at 17:59; Status Cancel Ondansetron HCl (Zofran) 4 mg PRN Q8HRS PRN IV NAUSEA/VOMITING; Start at 17:30; Stop 01/26/18 at 18:01; Status DC Fentanyl Citrate (Fentanyl 2ml Vial) 50 mcg PRN Q2HR PRN IV PAIN Last administered on 01/26/18at 19:16; Start 01/26/18 at 17:30; Stop 01/27/18 at 17 :29; Status DC Sodium Chloride 1,000 ml @ 80 mls/hr [id number] IV Last administered on at 06:47; Start 01/26/18 at 17:23; Stop 01/27/18 at 17:22; Status DC Acetaminophen (Tylenol) 650 mg PRN Q4HRS PRN PO FEVER; Start 01/26/18 at 17:30 ; Stop 01/27/18 at 17:29; Status DC Ondansetron HCl (Zofran) 4 mg PRN Q6HRS PRN IV NAUSEA/VOMITING; Start at 18:00; Stop 01/28/18 at 12:24; Status DC Al Hydroxide/Mg Hydroxide (Mylanta Plus Xs) 30 ml PRN Q2HR PRN PO HEARTBURN / GAS Last administered on 01/27/18at 21:25; Start 01/26/18 at 18:00; Stop 01/28 at 12:24; Status DC Multi-Ingredient Mouthwash/Gargle (Gi Cocktail) 20 ml PRN Q15MIN PRN PO CHEST PAIN; Start 01/26/18 at 18:00; Stop 01/28/18 at 12:24; Status DC Multi-Ingredient Mouthwash/Gargle (Gi Cocktail) 20 ml 1X ONCE SWSW Last administered on 01/26/18at 20:35; Start 01/26/18 at 18:15; Stop 01/26/18 at 18 :16; Status DC Ceftriaxone Sodium 1 gm/ Dextrose 50 ml @ 100 mls/hr Q24H IV ; Start 01/26/18 at 18:00; Status UNV Aspirin (Popular Pays Aspirin) 325 mg DAILY PO Last administered on 01/28/18at 08:55; Start 01/27/18 at 09:00; Stop 01/28/18 at 12:24; Status DC Diphenhydramine HCl (Benadryl) 25 mg PRN QHS PRN PO INSOMNIA; Start 01/26/18 at 18:15; Stop 01/28/18 at 12:24; Status DC Ceftriaxone Sodium (Rocephin) 1 gm Q24H IVP Last administered on 01/27/18at 21: 29; Start 01/26/18 at 21:00; Stop 01/28/18 at 12:24; Status DC Labetalol HCl (Normodyne Iv Push) 10 mg PRN Q2HR PRN IVP HYPERTENSION, SEE COMMENTS; Start 01/26/18 at 18:15; Stop 01/28/18 at 12:24; Status DC Simvastatin (Zocor) 20 mg HS PO Last administered on 01/27/18at 21:29; Start 01/26/18 at 21:00; Stop 01/28/18 at 12:24; Status DC Acetaminophen/ Hydrocodone Bitart (Lortab 5/325) 1 tab PRN Q6HRS PRN PO MODERATE PAIN Last administered on 01/28/18at 08:55; Start 01/26/18 at 21:00; Stop 01/28/18 at 12:24; Status DC Lactobacillus Rhamnosus (Culturelle) 1 cap BID PO Last administered on at 08:55; Start 01/27/18 at 21:00; Stop 01/28/18 at 12:24; Status DC Pantoprazole Sodium (Protonix) 40 mg BIDAC PO Last administered on 01/27/18at 21:29; Start 01/27/18 at 20:00; Stop 01/28/18 at 12:24; Status DC Al Hydroxide/Mg Hydroxide (Mylanta Plus Xs) 30 ml PRN Q2HR PRN PO HEARTBURN / GAS; Start 01/27/18 at 20:45; Stop 01/28/18 at 12:24; Status DC Calcium Carbonate/ Glycine (Tums) 500 mg PRN AFTMEALHC PRN PO INDIGESTION; Start 01/27/18 at 20:45; Stop 01/28/18 at 12:24; Status DC Acetaminophen (Tylenol) 650 mg PRN Q6HRS PRN PO MILD PAIN / TEMP; Start at 21:15; Stop 01/28/18 at 12:24; Status DC Pantoprazole Sodium (PROTONIX VIAL for IV PUSH) 40 mg 1X ONCE IVP Last administered on 01/28/18at 08:56; Start 01/28/18 at 07:45; Stop 01/28/18 at 07 :46; Status DC Active Scripts Active Naproxen Sodium 220 Mg Tablet 220 Mg PO BID PRN Reported Aspirin 325 Mg Tablet 325 Mg PO PRN PRN Vitals/I & O Vital Sign - Last 24 Hours 01/27/18 01/27/18 01/27/18 01/27/18 15:00 15:58 19:00 20:00 Temp 97.6 97.7 97.6 97.7 Pulse 73 75 Resp 18 18 B/P (MAP) 127/56 (79) 145/62 (89) Pulse Ox 91 90 O2 Delivery Room Air Room Air Room Air Room Air O2 Flow Rate 96.0 10/27/18 10/28/18 10/28/18 10/28/18 23:00 01:42 02:42 03:00 Temp 98.9 97.9 98.9 97.9 Pulse 73 94 Resp 18 16 16 14 B/P (MAP) 145/66 (92) 119/70 (86) Pulse Ox 92 92 97 O2 Delivery Room Air Room Air Room Air O2 Flow Rate 96.0 96.0 01/28/18 01/28/18 01/28/18 01/28/18 07:00 08:15 08:55 12:20 Temp 97.9 97.9 Pulse 67 Resp 18 B/P (MAP) 133/78 (96) Pulse Ox 96 97 97 O2 Delivery Room Air Room Air Room Air Room Air Intake and Output 01/27/18 01/27/18 01/28/18 15:00 23:00 07:00 Intake Total 480 ml 120 ml Output Total 1 ml Balance 480 ml -1 ml 120 ml DANIEL NANCE III DO Jan 28, 2018 14:02
== END 2018-01-28 12:20 | disposition home or self-care (01) | DRG 690 ==
LOC: ER 14:28 → 4 NORTH 17:26
PROVIDERS: ADMIT Internal Medicine; ATTEND Internal Medicine
DX: N12 Tubulo-interstitial nephritis, not specified as acute or chronic (principal); E78.00 Pure hypercholesterolemia, unspecified; J44.9 Chronic obstructive pulmonary disease, unspecified; M79.7 Fibromyalgia; E78.5 Hyperlipidemia, unspecified; G89.29 Other chronic pain; K44.9 Diaphragmatic hernia without obstruction or gangrene; K21.9 Gastro-esophageal reflux disease without esophagitis; E66.3 Overweight; I10 Essential (primary) hypertension; N81.10 Cystocele, unspecified; Z86.73 Personal history of transient ischemic attack (TIA), and cerebral infarction without residual deficits; Z90.710 Acquired absence of both cervix and uterus; Z88.8 Allergy status to other drugs, medicaments and biological substances; Z87.891 Personal history of nicotine dependence; Z79.82 Long term (current) use of aspirin; Z79.1 Long term (current) use of non-steroidal anti-inflammatories (NSAID); Z98.51 Tubal ligation status; Z82.49 Family history of ischemic heart disease and other diseases of the circulatory system; Z68.31 Body mass index [BMI] 31.0-31.9, adult; Z87.440 Personal history of urinary (tract) infections
CPT/HCPCS: 36415; 71046; 74177; 80048; 80053; 80307; 81001; 83690; 84484; 85025; 87040; 87086; 93005; 96374; 96375; C9113; J0696; J2405; J3010; J3490; J7030; Q9967; 99285-25; G0479

== ENCOUNTER 2018-06-19 21:45 | Inpatient (IN) | payer MEDICARE ==
[~2018-06-19] VITALS: Ht 170.2 cm; Wt 89.5 kg
[~2018-06-19 21:45] MED LIST changes: +HYDR-3164 PO; -HYDR-971 PO
--- NOTE | 2018-06-19 21:56 | PHYS DOC ---
Past Medical History Past Medical History: High Cholesterol, Stroke Additional Past Medical Histor: Fibromyalgia Past Surgical History: Hysterectomy Alcohol Use: None Drug Use: None Adult General Chief Complaint Chief Complaint: CHEST PAIN HPI HPI Patient is a 67 y o female who presents via EMS with complaint of squeezing chest pain that began around 2100 this evening while patient was at rest. She called EMS, who gave her 2 doses of nitro and 324mg aspirin en route. Patient reports the pain was 8/10 and had some radiation to her back but denies radiation elsewhere. She reports she has never experienced these symptoms before. She reports she is currently feeling "fine" and describes the pain 3/ 10. She currently denies SOA, nausea, abdominal pain, fever, recent respiratory symptoms. She reports she has COPD and hyperlipidemia and is not on home oxygen. She denies etoh, smoking, or drug use. She reports she has had hysterectomy and bladder sling but denies additional surgeries. medics c/f stemi on ekg 1 then improved on ekg 2 after nitro Review of Systems Review of Systems Constitutional: Denies fever or chills [] Eyes: Denies change in visual acuity, redness, or eye pain [] HENT: Denies nasal congestion or sore throat [] Respiratory: Denies cough or shortness of breath [] Cardiovascular: Admits squeezing chest pain. Denies palpitations. GI: Denies abdominal pain, nausea, vomiting, bloody stools or diarrhea [] : Denies dysuria or hematuria [] Musculoskeletal: Denies back pain or joint pain [] Integument: Denies rash or skin lesions [] Neurologic: Denies headache, focal weakness or sensory changes [] All other systems were reviewed and found to be within normal limits, except as documented in this note. Current Medications Current Medications Current Medications Medications (Trade) Dose Ordered Sig/Beatriz Start Time Stop Time Status Last Admin Dose Admin Fentanyl Citrate (Fentanyl 2ml Vial) 50 mcg 1X ONCE 06/19/18 22:30 06/19/18 22:31 DC Nitroglycerin (Nitrostat) 0.4 mg PRN Q5MIN PRN 06/19/18 22:00 06/19/18 22:09 0.4 MG Allergies Allergies Allergies Coded Allergies Type Severity Reaction Last Updated Verified pregabalin Allergy Intermediate 01/27/18 No Physical Exam Physical Exam Constitutional: Well developed, well nourished, no acute distress, non-toxic appearance. [] HENT: Normocephalic, atraumatic, Neck: Normal range of motion, no tenderness, supple, no stridor. [] Cardiovascular:Heart rate regular rhythm, no murmur [] Lungs & Thorax: Few scattered wheezes lower lung curiel. Abdomen: Soft, nontender. Skin: Warm, dry, no erythema, no rash. [] Back: No tenderness Extremities: No tenderness, no cyanosis, no clubbing, ROM intact, no edema. [] Neurologic: Alert and oriented X 3, normal motor function, normal sensory function, no focal deficits noted. [] Psychologic: Affect normal, judgement normal, mood normal. [] Current Patient Data Vital Signs Vital Signs Date Time Temp Pulse Resp B/P (MAP) Pulse Ox O2 Delivery O2 Flow Rate FiO2 06/19/18 22:49 78 18 115/60 (78) 93 Room Air 06/19/18 21:46 98.2 98.2 Lab Values Laboratory Tests Test 06/19/18 21:50 White Blood Count 6.3 x10^3/uL (4.0-11.0) Red Blood Count 4.33 x10^6/uL (3.50-5.40) Hemoglobin 13.2 g/dL (12.0-15.5) Hematocrit 39.3 % (36.0-47.0) Mean Corpuscular Volume 91 fL (79-100) Mean Corpuscular Hemoglobin 30 pg (25-35) Mean Corpuscular Hemoglobin Concent 34 g/dL (31-37) Red Cell Distribution Width 13.6 % (11.5-14.5) Platelet Count 224 x10^3/uL (140-400) Neutrophils (%) (Auto) 53 % (31-73) Lymphocytes (%) (Auto) 37 % (24-48) Monocytes (%) (Auto) 8 % (0-9) Eosinophils (%) (Auto) 2 % (0-3) Basophils (%) (Auto) 1 % (0-3) Neutrophils # (Auto) 3.4 x10^3uL (1.8-7.7) Lymphocytes # (Auto) 2.3 x10^3/uL (1.0-4.8) Monocytes # (Auto) 0.5 x10^3/uL (0.0-1.1) Eosinophils # (Auto) 0.1 x10^3/uL (0.0-0.7) Basophils # (Auto) 0.0 x10^3/uL (0.0-0.2) Prothrombin Time 11.4 SEC (11.7-14.0) L Prothrombin Time INR 0.9 (0.8-1.1) D-Dimer (Monica) 0.81 ug/mlFEU (0.00-0.50) H Sodium Level 144 mmol/L (136-145) Potassium Level 3.9 mmol/L (3.5-5.1) Chloride Level 104 mmol/L (98-107) Carbon Dioxide Level 31 mmol/L (21-32) Anion Gap 9 (6-14) Blood Urea Nitrogen 14 mg/dL (7-20) Creatinine 0.8 mg/dL (0.6-1.0) Estimated GFR (Cockcroft-Gault) 71.5 BUN/Creatinine Ratio 18 (6-20) Glucose Level 105 mg/dL (70-99) H Calcium Level 8.9 mg/dL (8.5-10.1) Total Bilirubin 0.2 mg/dL (0.2-1.0) Aspartate Amino Transferase (AST) 29 U/L (15-37) Alanine Aminotransferase (ALT) 33 U/L (14-59) Alkaline Phosphatase 148 U/L (46-116) H Troponin I Quantitative < 0.017 ng/mL (0.000-0.055) Total Protein 6.9 g/dL (6.4-8.2) Albumin 3.4 g/dL (3.4-5.0) Albumin/Globulin Ratio 1.0 (1.0-1.7) Laboratory Tests 06/19/18 21:50 Laboratory Tests 06/19/18 21:50 EKG EKG [EKG 1: @ 2149; HR 83BPM, Sinus rhythm. no ST segment elevation. Reviewed with Ray who agreed no STEMI EKG 2: @ 2227; HR 73 BPM: Sinus rhythm, No ST segment elevation. No areas of ischemia appreciated. ] Radiology/Procedures Radiology/Procedures [PROCEDURE: CT ANGIOGRAPHY CHEST Chest CTA History: Chest pain, elevated d-dimer Technique: After bolus of intravenous contrast, CT imaging was performed of the chest. Multiplanar reconstruction images to include MIP reconstruction images are submitted. Exposure: One or more of the following individualized dose reduction techniques were utilized for this examination: 1. Automated exposure control 2. Adjustment of the mA and/or kV according to patient size 3. Use of iterative reconstruction technique. Comparison: None Findings: [ ] No pulmonary embolism is identified. 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 There is no pneumothorax or pleural fluid. There is small hiatal hernia. There is some mild subpleural density upper lobes posteriorly bilaterally greater on the right, the right up to about 1.6 cm in size. There is a small right upper lobe nodule about 0.3 cm image 37 series 3. Impression: 1. No pulmonary embolism is identified. There is some dependent subpleural density of the upper lobes bilaterally greater on the which may be due to atelectasis although possible mild infiltrate on the right. As nodule is not excluded on the right, short-term follow-up in 3 months is advised as per revised Fleischner guidelines. Electronically signed by: Mikey Owens MD (06/19/2018 11:28 PM) [facility] PROCEDURE: PORTABLE CHEST 1V PORTABLE CHEST 1V History: chest pain Comparison: 01/26/2018 Findings: AP portable view of the chest is submitted. There is no lobar consolidation, pleural fluid, pneumothorax. There is somewhat lesser degree of inspiration for this exam. Heart size is stable. Impression: 1. No acute radiographic abnormality is identified. Electronically signed by: Mikey Owens MD (06/19/2018 10:53 PM) [facility]] Course & Med Decision Making Course & Med Decision Making Patient is a 67 yo female who presents with complaint of squeezing chest pain that began at 2100. Patient called EMS who administered 2 doses of nitro and aspirin en route. EMS attempted to transmit EKG however there were system difficulties with transmission. On arrival patient appeared in stable condition and stated she felt "fine" and that her chest pain had improved to 3/10. Vitals were unremarkable, including stable pressure. EKG from EMS appeared to show minor ST changes in inferior leads. The first EKG obtained in ED was sinus rhythm and did not appear to have ST elevation. This EKG was reviewed with Ray. Patient was given an additional dose of nitro and fentanyl to alleviate pain. A second EKG was later obtained which also showed sinus rhythm without ST elevation. Patient continued to feel well in ED, however d/t dynamic EKG changes, age, and risk factors patient's HEART score was also elevated. [place] patient was appropriate for admission. Admitted patient to [facility] per usual local protocol for further evaluation. Discussed plan with patient who verbalized understanding and agreement. ct scan noted, doxy ordereed will need follow up of findings. ct neg for pe. Dragon Disclaimer Dragon Disclaimer This electronic medical record was generated, in whole or in part, using a voice recognition dictation system. Departure Departure Impression: Primary Impression: Chest pain Disposition: ADMITTED INPATIENT Admitting Physician: Other Condition: STABLE Referrals: JAELYN PARKER MD (PCP) HI MOYER MD Jun 19, 2018 21:56
[2018-06-19] MEDS ORDERED: NITROGLYCERIN SUBLINGUAL 0.4 MG BOTTLE OF 25. SL PRN (22:00)
--- NOTE | 2018-06-19 22:01 | EKG ---
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
[2018-06-19 22:07] LABS: BASO % 1 % (0-3); EOS # 0.1 x10^3/uL (0.0-0.7); EOS % 2 % (0-3); HEMATOCRIT 39.3 % (36.0-47.0); HEMOGLOBIN 13.2 g/dL (12.0-15.5); LYMPH # 2.3 x10^3/uL (1.0-4.8); LYMPH % 37 % (24-48); MEAN CORPUSCULAR HEMOGLOBIN 30 pg (25-35); MEAN CORPUSCULAR HGB CONC 34 g/dL (31-37); MEAN CORPUSCULAR VOLUME 91 fL (79-100); MONO # 0.5 x10^3/uL (0.0-1.1); MONO % 8 % (0-9); NEUT # 3.4 x10^3uL (1.8-7.7); NEUT % 53 % (31-73); PLATELET COUNT 224 x10^3/uL (140-400); RED BLOOD COUNT 4.33 x10^6/uL (3.50-5.40); RED CELL DISTRIBUTION WIDTH 13.6 % (11.5-14.5); WHITE BLOOD COUNT 6.3 x10^3/uL (4.0-11.0)
[2018-06-19 22:16] LABS: CALCIUM 8.9 mg/dL (8.5-10.1); CREATININE 0.8 mg/dL (0.6-1.0); GFR 71.5; POTASSIUM 3.9 mmol/L (3.5-5.1)
[2018-06-19 22:21] LABS: ALBUMIN 3.4 g/dL (3.4-5.0); TOTAL BILIRUBIN 0.2 mg/dL (0.2-1.0); TOTAL PROTEIN 6.9 g/dL (6.4-8.2)
[2018-06-19 22:30] LABS: PROTHROMBIN TIME PATIENT 11.4 SEC (11.7-14.0)
[2018-06-19] MEDS ORDERED: fentaNYL PF VIAL 100 MCG/2 ML VIAL IV ONE (22:30)
[2018-06-19 22:39] LABS: D-DIMER 0.81 ug/mlFEU (0.00-0.50)
--- NOTE | 2018-06-19 22:56 | RAD ---
PORTABLE CHEST 1V History: chest pain Comparison: 01/26/2018 Findings: AP portable view of the chest is submitted. There is no lobar consolidation, pleural fluid, pneumothorax. There is somewhat lesser degree of inspiration for this exam. Heart size is stable. Impression: 1. No acute radiographic abnormality is identified. Electronically signed by: Mikey Owens MD (06/19/2018 10:53 PM) [facility]
[2018-06-19] MEDS ORDERED: CONTRAST GIVEN. MC PRN (23:15)
[2018-06-19] MEDS ORDERED: IOHEXOL 350 MG/ML 100 ML VIAL. IV ONE (23:30)
--- NOTE | 2018-06-19 23:31 | RAD ---
Chest CTA History: Chest pain, elevated d-dimer Technique: After bolus of intravenous contrast, CT imaging was performed of the chest. Multiplanar reconstruction images to include MIP reconstruction images are submitted. Exposure: One or more of the following individualized dose reduction techniques were utilized for this examination: 1. Automated exposure control 2. Adjustment of the mA and/or kV according to patient size 3. Use of iterative reconstruction technique. Comparison: None Findings: [ ] No pulmonary embolism is identified. 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 There is no pneumothorax or pleural fluid. There is small hiatal hernia. There is some mild subpleural density upper lobes posteriorly bilaterally greater on the right, the right up to about 1.6 cm in size. There is a small right upper lobe nodule about 0.3 cm image 37 series 3. Impression: 1. No pulmonary embolism is identified. There is some dependent subpleural density of the upper lobes bilaterally greater on the which may be due to atelectasis although possible mild infiltrate on the right. As nodule is not excluded on the right, short-term follow-up in 3 months is advised as per revised Fleischner guidelines. Electronically signed by: Mikey Owens MD (06/19/2018 11:28 PM) [facility]
[2018-06-19 23:45] VITALS: BP 117/50
[2018-06-19] MEDS ORDERED: fentaNYL PF VIAL 100 MCG/2 ML VIAL IV PRN (23:45)
[2018-06-20] VITALS (17 sets, daily range): BP systolic 98–148; BP diastolic 22–97
[2018-06-20] MEDS ORDERED: DOXYCYCLINE HYCLATE 100 MG TABLET PO ONE
[2018-06-20] MEDS ORDERED: ESOM20CA PO (00:06)
--- NOTE | 2018-06-20 04:48 | NUR ---
Contacted lab in regards to 0237 troponin and they have drawn it but not ran it.
[2018-06-20] MEDS ORDERED: IOHEXOL 350 MG/ML 100 ML VIAL. ONE (06:02)
--- NOTE | 2018-06-20 06:02 | EKG ---
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
[2018-06-20 06:58] LABS: CHOLESTEROL/HDL RATIO 4.1
--- NOTE | 2018-06-20 10:19 | PDOC2 ---
CARDIAC CONSULT DATE OF CONSULT Date of Consult DATE: 06/20/18 TIME: 09:50 REASON FOR CONSULT Reason for Consult: Chest pain REFERRING PHYSICIAN Referring Physician: Kassy SOURCE Source: Chart review, Patient HISTORY OF PRESENT ILLNESS HISTORY OF PRESENT ILLNESS This is a pleasant 67 yo female admitted for complains of chest pain. Reports that this started around 9 PM and it intensified for about 20 minutes. She did not have dinner at that time and her last full meal was at lunch. She takes nexium every day, takes ASA but no frequent ibuprofen or aleve. Denies any TAO nor exertional chest pain. Last night her pain started in the epigastric region with tightness which went up to his lower chest to his immediate mid back and left lower rib cage region making it hard for her to breath and noted self with nausea and actually vomited and had diaphoresis and no jaw tightness or arm heaviness. Her last stress test was about 10 yrs ago. She has COPD and still smoke intermittently. She is significant for sliding hiatal hernia noted via CT last yr to which she had the same symptom. She was given NTG and ASA en route and her pain resolved after 30 minutes without recurrence. PAST MEDICAL HISTORY Cardiovascular: Hyperlipidemia Pulmonary: COPD CENTRAL NERVOUS SYSTEM: CVA (2012) GI: GERD, Other (hiatal hernia) Heme/Onc: No pertinent hx Hepatobiliary: Hep A/B/C (A) Psych: No pertinent hx Musculoskeletal: Osteoarthritis Rheumatologic: No pertinent hx Infectious disease: No pertinent hx ENT: No pertinent hx Renal/: No pertinent hx Endocrine: No pertinent hx Dermatology: No pertinent hx PAST SURGICAL HISTORY Past Surgical History: Appendectomy, Tubal Ligation, Hysterectomy, Other ( bladder suspension; [facility] 2009 no intervention) FAMILY HISTORY Family History: Hypertension SOCIAL HISTORY Smoke: <1 pack per day (>40 yrs) ALCOHOL: none Drugs: None Lives: with Family CURRENT MEDICATIONS CURRENT MEDICATIONS Current Medications Medications (Trade) Dose Ordered Sig/Beatriz Route PRN Reason Start Time Stop Time Status Last Admin Dose Admin Nitroglycerin (Nitrostat) 0.4 mg PRN Q5MIN PRN SL CHEST PAIN 06/19/18 22:00 06/19/18 22:09 Iohexol (Omnipaque 350 Mg/ml) 100 ml 1X ONCE IV 06/19/18 23:30 06/19/18 23:31 DC 06/19/18 23:07 Doxycycline Hyclate (Vibra-Tab) 100 mg 1X ONCE PO 06/20/18 00:00 06/20/18 00:01 DC 06/20/18 00:15 ALLERGIES ALLERGIES: Coded Allergies: pregabalin (Unverified Allergy, Intermediate, 01/27/18) "MAKES ME STUPID" "makes me crazy" ROS Review of System 14 point ROS evaluated with pertinent positives noted per HPI PHYSICAL EXAM General: Alert, Oriented X3, Cooperative, No acute distress HEENT: Atraumatic, Mucous membr. moist/pink Lungs: Clear to auscultation, Normal air movement Heart: Regular rate (SR), Normal S1, Normal S2, Other (2/6 systolic murmur to LLS border) Abdomen: Soft, No tenderness Extremities: No cyanosis, No edema Skin: No breakdown, No significant lesion Neuro: Normal speech, Sensation intact Psych/Mental Status: Mental status NL, Mood NL MUSCULOSKELETAL: Osteoarthritic changes both hands VITALS VITALS Vital Signs Date Time Temp Pulse Resp B/P (MAP) Pulse Ox O2 Delivery O2 Flow Rate FiO2 06/20/18 07:33 97.6 72 24 112/50 (70) Room Air 97.6 06/20/18 03:00 96 LABS Lab: Laboratory Tests Test 06/19/18 21:50 06/20/18 02:50 06/20/18 06:00 White Blood Count 6.3 x10^3/uL (4.0-11.0) Red Blood Count 4.33 x10^6/uL (3.50-5.40) Hemoglobin 13.2 g/dL (12.0-15.5) Hematocrit 39.3 % (36.0-47.0) Mean Corpuscular Volume 91 fL (79-100) Mean Corpuscular Hemoglobin 30 pg (25-35) Mean Corpuscular Hemoglobin Concent 34 g/dL (31-37) Red Cell Distribution Width 13.6 % (11.5-14.5) Platelet Count 224 x10^3/uL (140-400) Neutrophils (%) (Auto) 53 % (31-73) Lymphocytes (%) (Auto) 37 % (24-48) Monocytes (%) (Auto) 8 % (0-9) Eosinophils (%) (Auto) 2 % (0-3) Basophils (%) (Auto) 1 % (0-3) Neutrophils # (Auto) 3.4 x10^3uL (1.8-7.7) Lymphocytes # (Auto) 2.3 x10^3/uL (1.0-4.8) Monocytes # (Auto) 0.5 x10^3/uL (0.0-1.1) Eosinophils # (Auto) 0.1 x10^3/uL (0.0-0.7) Basophils # (Auto) 0.0 x10^3/uL (0.0-0.2) Prothrombin Time 11.4 SEC (11.7-14.0) Prothromb Time International Ratio 0.9 (0.8-1.1) D-Dimer (Monica) 0.81 ug/mlFEU (0.00-0.50) Sodium Level 144 mmol/L (136-145) Potassium Level 3.9 mmol/L (3.5-5.1) Chloride Level 104 mmol/L (98-107) Carbon Dioxide Level 31 mmol/L (21-32) Anion Gap 9 (6-14) Blood Urea Nitrogen 14 mg/dL (7-20) Creatinine 0.8 mg/dL (0.6-1.0) Estimated GFR (Cockcroft-Gault) 71.5 BUN/Creatinine Ratio 18 (6-20) Glucose Level 105 mg/dL (70-99) Calcium Level 8.9 mg/dL (8.5-10.1) Total Bilirubin 0.2 mg/dL (0.2-1.0) Aspartate Amino Transf (AST/SGOT) 29 U/L (15-37) Alanine Aminotransferase (ALT/SGPT) 33 U/L (14-59) Alkaline Phosphatase 148 U/L (46-116) Troponin I Quantitative < 0.017 ng/mL (0.000-0.055) < 0.017 ng/mL (0.000-0.055) < 0.017 ng/mL (0.000-0.055) Total Protein 6.9 g/dL (6.4-8.2) Albumin 3.4 g/dL (3.4-5.0) Albumin/Globulin Ratio 1.0 (1.0-1.7) Triglycerides Level 82 mg/dL (0-150) Cholesterol Level 153 mg/dL (0-200) LDL Cholesterol, Calculated 100 mg/dL (0-100) VLDL Cholesterol, Calculated 16 mg/dL (0-40) Non-HDL Cholesterol Calculated 116 mg/dL (0-129) HDL Cholesterol 37 mg/dL (40-60) Cholesterol/HDL Ratio 4.1 ASSESSMENT/PLAN ASSESSMENT/PLAN 1. Chest pain: some UA features vs esophageal spasm with hiatal hernia 2. HLP: on goal 3. Hx of hiatal hernia/GERD 4. COPD with continued tobaccoism 5. Hx of CVA Recommendations 1. Continue statin and ASA. 2. LHC vs MPI. Discussed LHC, risks and benefits and agreeable to proceed. 3. TTE today. Smoking cessation 4. Will need outpt appt with GI (Dr. Ragsdale) as she failed EGD from last yr. AMANDA SU APRN Jun 20, 2018 10:19
[2018-06-20] MEDS ORDERED: LIDOCAINE 1% Multi-Dose 20 ML VIAL. ONE (10:34)
[2018-06-20] MEDS ORDERED: IODIXANOL 320 MG/ML 100 ML VIAL. ONE (10:34)
[2018-06-20] MEDS ORDERED: fentaNYL PF VIAL 100 MCG/2 ML VIAL ONE (10:39)
[2018-06-20] MEDS ORDERED: MIDAZOLAM HCL/PF 2 MG/2 ML VIAL. ONE ×2 (10:39→11:52)
--- NOTE | 2018-06-20 11:18 | PDOC ---
MODERATE SEDATION ASSESSMENT RISKS/ALTERNATIVES Risks/Alternatives Risks and alternatives of this type of sedation and procedure discussed with: RISK/ALTERNATIVES: Patient H & P ON CHART H & P H & P on chart and reviewed for co-morbid conditions and appropriate labs. H&P ON CHART: Yes STATUS PREG STATUS ASSESSED: Yes MEDS/ALLERGIES REVIEWED Meds/Allergies Reviewed Medications and Allergies including time and route of recently administered narcotics and sedatives. MEDS/ALLERGIES REVIEWED: Yes ASA RATING ASA RATING: II AIRWAY ASSESSMENT Airway Assessment Airway patency, oral function limitations, presence of caps, crowns, dentures, partials, and ability to extend neck assessed. AIRWAY ASSESSMENT: Yes MALLAMPATI SCORE MALLAMPATI SCORE: I PRE-SEDATION ASSESSMENT PRE-SEDATION ASSESSMENT: Yes VISH STERN MD Jun 20, 2018 11:18
[2018-06-20] MEDS ORDERED: HEPARIN for IV BOLUS 10,000 UNIT/10 ML VIAL. ONE (11:30)
[2018-06-20] MEDS ORDERED: NITROGLYCERIN 200 MCG/2 ML SYRINGE FOR CATH/VASC LAB. ONE (11:30)
[2018-06-20] MEDS ORDERED: VERAPAMIL 5 MG/2 ML VIAL. ONE (11:30)
[2018-06-20] MEDS ORDERED: HEPARIN for IV BOLUS 10,000 UNIT/10 ML VIAL. IART ONE (11:45)
[2018-06-20] MEDS ORDERED: IODIXANOL 320 MG/ML 100 ML VIAL. IART ONE (11:45)
[2018-06-20] MEDS ORDERED: MIDAZOLAM HCL/PF 2 MG/2 ML VIAL. IV ONE ×2 (11:45→12:00)
[2018-06-20] MEDS ORDERED: CONTRAST GIVEN. MC PRN (11:45)
[2018-06-20] MEDS ORDERED: NITROGLYCERIN 200 MCG/2 ML SYRINGE FOR CATH/VASC LAB. IART ONE (11:45)
[2018-06-20] MEDS ORDERED: fentaNYL PF VIAL 100 MCG/2 ML VIAL IV ONE (11:45)
[2018-06-20] MEDS ORDERED: LIDOCAINE 1% PF 2 ML VIAL. INJ ONE (11:45)
[2018-06-20] MEDS ORDERED: VERAPAMIL 5 MG/2 ML VIAL. IART ONE (11:45)
[2018-06-20] MEDS ORDERED: IV NORMAL SALINE 1000ML BAG 1,000 ML IV SCH (12:01)
[2018-06-20] MEDS ORDERED: 0.9 % SODIUM CHLORIDE 10 ML DISP.SYRIN. IV PRN (12:15)
[2018-06-20] MEDS ORDERED: NITROGLYCERIN SUBLINGUAL 0.4 MG BOTTLE OF 25. SL PRN (12:15)
--- NOTE | 2018-06-20 12:17 | CARD ---
MR#: [id number] Date of Study: 06/20/2018 Ordering Physician: AMANDA SU, Referring Physician: GLENN HASTINGS, Tech: Lucía Vaughan HEBER APPROVED REPORT EXAM: Two-dimensional and M-mode echocardiogram with Doppler and color Doppler. Other Information Quality : AverageHR: 60bpm Rhythm : NSR INDICATION Chest Pain 2D DIMENSIONS RVDd3.1 (2.9-3.5cm)IVSd1.2 (0.7-1.1cm) Aortic Root(2D)3.2 (2.0-3.7cm)LVDd4.5 (3.9-5.9cm) LVOT Diameter2.0 (1.8-2.4cm)PWd1.0 (0.7-1.1cm) IVSs1.5 (0.8-1.2cm)LVDs3.0 (2.5-4.0cm) FS (%) 33.6 %PWs1.6 (0.8-1.2cm) SV57.9 mlLVEF(%)62.4 (>50%) Aortic Valve AoV Peak Mikel.97.8cm/sAoV VTI23.1cm AO Peak GR.3.8mmHgLVOT VTI 64.00cm AO Mean GR.2mmHgAVA (VMAX)2.40cm2 MJ (VTI)2.40cm2 Mitral Valve MV E Stfwhooi83.8cm/sMV DECEL [id number] MV A Wdqhaeug69.5cm/sMV UXL16lb E/A Ratio1.0MVA (PHT)3.98cm2 TDI E/Lateral E'7.3E/Medial E'7.7 Pulmonary Valve PV Peak Wvtjwzea68.8cm/sPV Peak Grad.2mmHg Tricuspid Valve TR P. Qyxxsyvb512kq/sRAP [id number] TR Peak Gr.74psAgALNS39zfMs LEFT VENTRICLE The left ventricle is normal size. There is borderline to mild concentric left ventricular hypertroph y. The left ventricular systolic function is normal and the ejection fraction is within normal range. The Ejection Fraction is 60-65%. There is normal LV segmental wall motion. Transmitral Doppler flow pattern is Grade I-abnormal relaxation pattern. RIGHT VENTRICLE The right ventricle is normal size. There is normal right ventricular wall thickness. The right ventr icular systolic function is normal. ATRIA The left atrium size is normal. The right atrium size is normal. The interatrial septum is intact wit h no evidence for an atrial septal defect or patent foramen ovale as noted on 2-D or Doppler imaging. AORTIC VALVE The aortic valve is normal in structure and function. The aortic valve is trileaflet. Doppler and Col or Flow revealed no significant aortic regurgitation. There is no significant aortic valvular stenosi s. MITRAL VALVE The mitral valve is normal in structure and function. There is no evidence of mitral valve prolapse. There is no mitral valve stenosis. Doppler and Color-flow revealed trace to mild mitral regurgitation . TRICUSPID VALVE The tricuspid valve is normal in structure and function. Doppler and Color Flow revealed trace tricus pid regurgitation. The PA pressure was estimated at 24 mmHg. There is no tricuspid valve prolapse or vegetation. There is no tricuspid valve stenosis. PULMONIC VALVE The pulmonic valve is not well visualized. GREAT VESSELS The aortic root is normal in size. The ascending aorta is normal in size. The IVC is normal in size a nd collapses >50% with inspiration. PERICARDIAL EFFUSION There is no evidence of significant pericardial effusion. Critical Notification Critical Value: No <Conclusion> The left ventricular systolic function is normal and the ejection fraction is within normal range. Th e Ejection Fraction is 60-65%. There is normal LV segmental wall motion. Signed by : Aramis Mancera, Electronically Approved : 06/20/2018 12:16:04
--- NOTE | 2018-06-20 13:16 | CARD ---
MR#: [id number] Date of Study: 06/20/2018 Ordering Physician: AMANDA SU, Referring Physician: GLENN HASTINGS Tech: LUTHER BAUMAN RTR APPROVED REPORT Procedures Left heart catheterization Left ventriculogram Selective coronary angiogram The patient is a 67-year-old female who was admitted for recurrent chest pain. She had a mildly eleva triston troponin level. She has risk factors for coronary disease. Heart catheterization was recommended . Risks and benefits were discussed. The patient agreed to proceed. After informed consent was obtained the patient was brought to the heart catheterization lab. The are a of the right radial artery was prepared in the usual manner with Betadine, sterile draping and loca l anesthetic after a normal Sai's test. A quick cath device was used to enter the right radial ar ashu, a wire placed and a 6 Wallisian sheath placed over the wire. The standard mixture of heparin and a nti-antispasm medication was administered through the sheath. Using a J-wire a 6 Wallisian JL4 diagnosti c catheter was advanced to the ascending aorta. It was used to engage the left coronary system and se quential injections in various views were obtained. In a similar manner a 6 Wallisian Cesario right cris gnostic catheter was used to engage the right coronary artery and sequential injections in various vi ews were obtained. A pigtail catheter was advanced to the ascending aorta and the left ventricle. Snehal surements were obtained. A 30 FERNANDEZ left ventriculogram was performed. Pullback pressures were measure d. The catheter was removed from the patient. The sheath was removed and sealed in the standard terri r using a TR band. The patient was moved to the holding area in stable condition. Findings. Hemodynamics. LV pressure of 140/10, 16 Aortic pressure of 138/58. Coronaries Left main. The left main was a normal-size vessel with no lesions. Left anterior descending. The LAD was a moderate size vessel with normal distribution. It had no lesi ons. Left circumflex. The left circumflex is a moderate size vessel. It had no lesions. Right coronary artery. The right coronary was a moderate size vessel with normal distribution. It had no lesions. Distal vessels were relatively small. Left ventriculogram. The left ventricle showed normal left ventricular systolic function, an ejection fraction of greater than 55% and no significant mitral regurgitation. <Conclusion> No angiographic evidence of significant coronary artery disease. Normal left ventricular systolic function. Signed by : Tree Contreras MD Electronically Approved : 06/20/2018 13:15:26
--- NOTE | 2018-06-20 14:15 | PDOC1 ---
History and Physical Date of Admission Date of Admission June 20, 2018 Source Source: Chart review, Patient History of Present Illness History of Present Illness Patient is a 67-year-old female that comes today with a history of chest discomfort over the precordial area. Around 9 PM last evening. Patient prefers having discomfort for approximately 20 minutes did not have nausea no vomiting no diaphoresis no sensation of impending doom unfortunately patient given the progressive nature of her discomfort decided to come to the emergency department for evaluation. She denied any dyspnea on exertion did not proximal DuoNeb dyspnea she denied GERD no history of dietary transgressions. We have been asked to admit the patient for further evaluation of this chest discomfort. Of noticed that patient has a hiatal hernia and this probably sometimes give similar symptoms. The patient was given nitroglycerin in route from her household to the emergency department which seemed to alleviate the discomfort which could be seen also in esophageal spasms. Reassurance has been provided to the patient telemetry lab results and their workup up until this point has been reviewed the present with the patient plan of care explaining detail Past Medical History Cardiovascular: Hyperlipidemia Pulmonary: COPD CENTRAL NERVOUS SYSTEM: CVA (2012) GI: GERD, Other (hiatal hernia) Heme/Onc: No pertinent hx Hepatobiliary: Hep A/B/C (A) Psych: No pertinent hx Rheumatologic: No pertinent hx Infectious disease: No pertinent hx ENT: No pertinent hx Renal/: No pertinent hx Endocrine: No pertinent hx Dermatology: No pertinent hx Past Surgical History Past Surgical History: Appendectomy, Tubal Ligation, Hysterectomy, Other ( bladder suspension; [facility] 2009 no intervention) Family History Family History: Hypertension Social History Smoke: <1 pack per day (>40 yrs) ALCOHOL: none Drugs: None Current Medications Current Medications Current Medications Medications (Trade) Dose Ordered Sig/Beatriz Start Time Stop Time Status Last Admin Dose Admin Doxycycline Hyclate (Vibra-Tab) 100 mg 1X ONCE 06/20/18 00:00 06/20/18 00:01 DC 06/20/18 00:15 100 MG Fentanyl Citrate (Fentanyl 2ml Vial) 100 mcg 1X ONCE 06/20/18 11:45 06/20/18 11:46 DC 06/20/18 11:45 37.5 MCG Heparin Sodium (Porcine) (Heparin Sodium) 2,500 unit 1X ONCE 06/20/18 11:45 06/20/18 11:46 DC 06/20/18 11:45 2,500 UNIT Heparin Sodium/ Sodium Chloride (HEPARIN for ARTERIAL LINE FLUSH) 1,000 unit 1X ONCE 06/20/18 11:45 06/20/18 11:46 DC 06/20/18 11:45 1,000 UNIT Info (CONTRAST GIVEN -- Rx MONITORING) 1 each PRN DAILY PRN 06/20/18 11:45 06/22/18 11:44 Iodixanol (Visipaque 320) 100 ml 1X ONCE 06/20/18 11:45 06/20/18 11:46 DC 06/20/18 11:45 105 ML Iohexol (Omnipaque 350 Mg/ml) 100 ml STK-MED ONCE 06/20/18 06:02 06/20/18 06:03 DC Lidocaine HCl (Lidocaine 1% 20ml Vial) 20 ml STK-MED ONCE 06/20/18 10:34 06/20/18 10:35 DC Lidocaine HCl (Xylocaine-Mpf 1% 2ml Vial) 2 ml 1X ONCE 06/20/18 11:45 06/20/18 11:46 DC 06/20/18 11:45 1 ML Midazolam HCl (Versed) 2 mg 1X ONCE 06/20/18 12:00 06/20/18 12:01 DC 06/20/18 12:00 1 MG Nitroglycerin (Nitroglycerin) 200 mcg 1X ONCE 06/20/18 11:45 06/20/18 11:46 DC 06/20/18 11:45 200 MCG Nitroglycerin (Nitrostat) 0.4 mg PRN Q5MIN PRN 06/20/18 12:15 Sodium Chloride 1,000 ml @ 100 mls/hr Q10H 06/20/18 12:01 06/20/18 16:00 Sodium Chloride (Normal Saline Flush) 3 ml QSHIFT PRN 06/20/18 12:15 Verapamil HCl (Verapamil) 2.5 mg 1X ONCE 06/20/18 11:45 06/20/18 11:46 DC 06/20/18 11:45 2.5 MG Allergies Allergies Allergies Coded Allergies Type Severity Reaction Last Updated Verified pregabalin Allergy Intermediate 01/27/18 No ROS Review of System CONSTITUTIONAL: No fever or chills EYES: No recent changes SKIN: No rash or itching CARDIOVASCULAR: No chest pain, syncope, palpitations, or edema RESPIRATORY: No SOB or cough GASTROINTESTINAL: No nausea, vomiting or abdominal pain NEUROLOGICAL: No headaches or weakness ENDOCRINE: No cold or heat intolerance GENITOURINARY: No urgency or frequency of urination MUSCULOSKELETAL: No back pain or joint pain LYMPHATICS: No enlarged lymph nodes PSYCHIATRIC: No anxiety or depression Physical Exam Physical Exam GEN.: No apparent distress. Alert and oriented. HEENT: Head is normocephalic, atraumatic NECK: Supple. LUNGS: Clear to auscultation. HEART: RRR, S1, S2 present. Peripheral pulses intact ABDOMEN: Soft, nontender. Positive bowel sounds. EXTREMITIES: Without any cyanosis. NEUROLOGIC: Normal speech, normal tone PSYCHIATRIC: Normal affect, normal mood. SKIN: No ulcerations Vitals Vitals Vital Signs Date Time Temp Pulse Resp B/P (MAP) Pulse Ox O2 Delivery O2 Flow Rate FiO2 06/20/18 13:10 86 131/56 (81) Room Air 06/20/18 12:03 20 96 06/20/18 11:45 2.0 06/20/18 07:33 97.6 97.6 Labs Labs Laboratory Tests Test 06/19/18 21:50 06/20/18 02:50 06/20/18 06:00 White Blood Count 6.3 x10^3/uL (4.0-11.0) Red Blood Count 4.33 x10^6/uL (3.50-5.40) Hemoglobin 13.2 g/dL (12.0-15.5) Hematocrit 39.3 % (36.0-47.0) Mean Corpuscular Volume 91 fL (79-100) Mean Corpuscular Hemoglobin 30 pg (25-35) Mean Corpuscular Hemoglobin Concent 34 g/dL (31-37) Red Cell Distribution Width 13.6 % (11.5-14.5) Platelet Count 224 x10^3/uL (140-400) Neutrophils (%) (Auto) 53 % (31-73) Lymphocytes (%) (Auto) 37 % (24-48) Monocytes (%) (Auto) 8 % (0-9) Eosinophils (%) (Auto) 2 % (0-3) Basophils (%) (Auto) 1 % (0-3) Neutrophils # (Auto) 3.4 x10^3uL (1.8-7.7) Lymphocytes # (Auto) 2.3 x10^3/uL (1.0-4.8) Monocytes # (Auto) 0.5 x10^3/uL (0.0-1.1) Eosinophils # (Auto) 0.1 x10^3/uL (0.0-0.7) Basophils # (Auto) 0.0 x10^3/uL (0.0-0.2) Prothrombin Time 11.4 SEC (11.7-14.0) Prothromb Time International Ratio 0.9 (0.8-1.1) D-Dimer (Monica) 0.81 ug/mlFEU (0.00-0.50) Sodium Level 144 mmol/L (136-145) Potassium Level 3.9 mmol/L (3.5-5.1) Chloride Level 104 mmol/L (98-107) Carbon Dioxide Level 31 mmol/L (21-32) Anion Gap 9 (6-14) Blood Urea Nitrogen 14 mg/dL (7-20) Creatinine 0.8 mg/dL (0.6-1.0) Estimated GFR (Cockcroft-Gault) 71.5 BUN/Creatinine Ratio 18 (6-20) Glucose Level 105 mg/dL (70-99) Calcium Level 8.9 mg/dL (8.5-10.1) Total Bilirubin 0.2 mg/dL (0.2-1.0) Aspartate Amino Transf (AST/SGOT) 29 U/L (15-37) Alanine Aminotransferase (ALT/SGPT) 33 U/L (14-59) Alkaline Phosphatase 148 U/L (46-116) Troponin I Quantitative < 0.017 ng/mL (0.000-0.055) < 0.017 ng/mL (0.000-0.055) < 0.017 ng/mL (0.000-0.055) Total Protein 6.9 g/dL (6.4-8.2) Albumin 3.4 g/dL (3.4-5.0) Albumin/Globulin Ratio 1.0 (1.0-1.7) Triglycerides Level 82 mg/dL (0-150) Cholesterol Level 153 mg/dL (0-200) LDL Cholesterol, Calculated 100 mg/dL (0-100) VLDL Cholesterol, Calculated 16 mg/dL (0-40) Non-HDL Cholesterol Calculated 116 mg/dL (0-129) HDL Cholesterol 37 mg/dL (40-60) Cholesterol/HDL Ratio 4.1 Laboratory Tests Test 06/19/18 21:50 06/20/18 02:50 06/20/18 06:00 White Blood Count 6.3 x10^3/uL (4.0-11.0) Red Blood Count 4.33 x10^6/uL (3.50-5.40) Hemoglobin 13.2 g/dL (12.0-15.5) Hematocrit 39.3 % (36.0-47.0) Mean Corpuscular Volume 91 fL (79-100) Mean Corpuscular Hemoglobin 30 pg (25-35) Mean Corpuscular Hemoglobin Concent 34 g/dL (31-37) Red Cell Distribution Width 13.6 % (11.5-14.5) Platelet Count 224 x10^3/uL (140-400) Neutrophils (%) (Auto) 53 % (31-73) Lymphocytes (%) (Auto) 37 % (24-48) Monocytes (%) (Auto) 8 % (0-9) Eosinophils (%) (Auto) 2 % (0-3) Basophils (%) (Auto) 1 % (0-3) Neutrophils # (Auto) 3.4 x10^3uL (1.8-7.7) Lymphocytes # (Auto) 2.3 x10^3/uL (1.0-4.8) Monocytes # (Auto) 0.5 x10^3/uL (0.0-1.1) Eosinophils # (Auto) 0.1 x10^3/uL (0.0-0.7) Basophils # (Auto) 0.0 x10^3/uL (0.0-0.2) Prothrombin Time 11.4 SEC (11.7-14.0) Prothromb Time International Ratio 0.9 (0.8-1.1) D-Dimer (Monica) 0.81 ug/mlFEU (0.00-0.50) Sodium Level 144 mmol/L (136-145) Potassium Level 3.9 mmol/L (3.5-5.1) Chloride Level 104 mmol/L (98-107) Carbon Dioxide Level 31 mmol/L (21-32) Anion Gap 9 (6-14) Blood Urea Nitrogen 14 mg/dL (7-20) Creatinine 0.8 mg/dL (0.6-1.0) Estimated GFR (Cockcroft-Gault) 71.5 BUN/Creatinine Ratio 18 (6-20) Glucose Level 105 mg/dL (70-99) Calcium Level 8.9 mg/dL (8.5-10.1) Total Bilirubin 0.2 mg/dL (0.2-1.0) Aspartate Amino Transf (AST/SGOT) 29 U/L (15-37) Alanine Aminotransferase (ALT/SGPT) 33 U/L (14-59) Alkaline Phosphatase 148 U/L (46-116) Troponin I Quantitative < 0.017 ng/mL (0.000-0.055) < 0.017 ng/mL (0.000-0.055) < 0.017 ng/mL (0.000-0.055) Total Protein 6.9 g/dL (6.4-8.2) Albumin 3.4 g/dL (3.4-5.0) Albumin/Globulin Ratio 1.0 (1.0-1.7) Triglycerides Level 82 mg/dL (0-150) Cholesterol Level 153 mg/dL (0-200) LDL Cholesterol, Calculated 100 mg/dL (0-100) VLDL Cholesterol, Calculated 16 mg/dL (0-40) Non-HDL Cholesterol Calculated 116 mg/dL (0-129) HDL Cholesterol 37 mg/dL (40-60) Cholesterol/HDL Ratio 4.1 VTE Prophylaxis Ordered VTE Prophylaxis Devices: No VTE Pharmacological Prophylaxi: Yes Assessment/Plan Assessment/Plan Chest pain rule out ACS Obesity with a BMI of 30 Dyslipidemia hiatal hernia and GERD tobacco abuse Plan: Consult cardiology Follow recommendations from device sales consultant Resume home medications Further recommendations based on the clinical course DVT prophylaxis with heparin FRANCISCO VIERA MD Jun 20, 2018 14:15
--- NOTE | 2018-06-20 14:58 | PDOC3 ---
Discharge Summary Visit Information Date of Admission: Jun 20, 2018 Date of Discharge: Jun 20, 2018 Admitting Diagnosis: chest pain Final Diagnosis 1. Chest pain: some UA features vs esophageal spasm with hiatal hernia 2. HLP: on goal 3. Hx of hiatal hernia/GERD 4. COPD with continued tobaccoism 5. Hx of CVA Brief Hospital Course Allergies Allergies Coded Allergies Type Severity Reaction Last Updated Verified pregabalin Allergy Intermediate 01/27/18 No Vital Signs Vital Signs Date Time Temp Pulse Resp B/P (MAP) Pulse Ox O2 Delivery O2 Flow Rate FiO2 06/20/18 14:00 97.5 78 18 135/97 (110) 91 Room Air 97.5 06/20/18 11:45 2.0 Lab Results Laboratory Tests Test 06/19/18 21:50 06/20/18 02:50 06/20/18 06:00 White Blood Count 6.3 x10^3/uL (4.0-11.0) Red Blood Count 4.33 x10^6/uL (3.50-5.40) Hemoglobin 13.2 g/dL (12.0-15.5) Hematocrit 39.3 % (36.0-47.0) Mean Corpuscular Volume 91 fL (79-100) Mean Corpuscular Hemoglobin 30 pg (25-35) Mean Corpuscular Hemoglobin Concent 34 g/dL (31-37) Red Cell Distribution Width 13.6 % (11.5-14.5) Platelet Count 224 x10^3/uL (140-400) Neutrophils (%) (Auto) 53 % (31-73) Lymphocytes (%) (Auto) 37 % (24-48) Monocytes (%) (Auto) 8 % (0-9) Eosinophils (%) (Auto) 2 % (0-3) Basophils (%) (Auto) 1 % (0-3) Neutrophils # (Auto) 3.4 x10^3uL (1.8-7.7) Lymphocytes # (Auto) 2.3 x10^3/uL (1.0-4.8) Monocytes # (Auto) 0.5 x10^3/uL (0.0-1.1) Eosinophils # (Auto) 0.1 x10^3/uL (0.0-0.7) Basophils # (Auto) 0.0 x10^3/uL (0.0-0.2) Prothrombin Time 11.4 SEC (11.7-14.0) Prothromb Time International Ratio 0.9 (0.8-1.1) D-Dimer (Monica) 0.81 ug/mlFEU (0.00-0.50) Sodium Level 144 mmol/L (136-145) Potassium Level 3.9 mmol/L (3.5-5.1) Chloride Level 104 mmol/L (98-107) Carbon Dioxide Level 31 mmol/L (21-32) Anion Gap 9 (6-14) Blood Urea Nitrogen 14 mg/dL (7-20) Creatinine 0.8 mg/dL (0.6-1.0) Estimated GFR (Cockcroft-Gault) 71.5 BUN/Creatinine Ratio 18 (6-20) Glucose Level 105 mg/dL (70-99) Calcium Level 8.9 mg/dL (8.5-10.1) Total Bilirubin 0.2 mg/dL (0.2-1.0) Aspartate Amino Transf (AST/SGOT) 29 U/L (15-37) Alanine Aminotransferase (ALT/SGPT) 33 U/L (14-59) Alkaline Phosphatase 148 U/L (46-116) Troponin I Quantitative < 0.017 ng/mL (0.000-0.055) < 0.017 ng/mL (0.000-0.055) < 0.017 ng/mL (0.000-0.055) Total Protein 6.9 g/dL (6.4-8.2) Albumin 3.4 g/dL (3.4-5.0) Albumin/Globulin Ratio 1.0 (1.0-1.7) Triglycerides Level 82 mg/dL (0-150) Cholesterol Level 153 mg/dL (0-200) LDL Cholesterol, Calculated 100 mg/dL (0-100) VLDL Cholesterol, Calculated 16 mg/dL (0-40) Non-HDL Cholesterol Calculated 116 mg/dL (0-129) HDL Cholesterol 37 mg/dL (40-60) Cholesterol/HDL Ratio 4.1 Laboratory Tests Test 06/19/18 21:50 06/20/18 02:50 06/20/18 06:00 White Blood Count 6.3 x10^3/uL (4.0-11.0) Red Blood Count 4.33 x10^6/uL (3.50-5.40) Hemoglobin 13.2 g/dL (12.0-15.5) Hematocrit 39.3 % (36.0-47.0) Mean Corpuscular Volume 91 fL (79-100) Mean Corpuscular Hemoglobin 30 pg (25-35) Mean Corpuscular Hemoglobin Concent 34 g/dL (31-37) Red Cell Distribution Width 13.6 % (11.5-14.5) Platelet Count 224 x10^3/uL (140-400) Neutrophils (%) (Auto) 53 % (31-73) Lymphocytes (%) (Auto) 37 % (24-48) Monocytes (%) (Auto) 8 % (0-9) Eosinophils (%) (Auto) 2 % (0-3) Basophils (%) (Auto) 1 % (0-3) Neutrophils # (Auto) 3.4 x10^3uL (1.8-7.7) Lymphocytes # (Auto) 2.3 x10^3/uL (1.0-4.8) Monocytes # (Auto) 0.5 x10^3/uL (0.0-1.1) Eosinophils # (Auto) 0.1 x10^3/uL (0.0-0.7) Basophils # (Auto) 0.0 x10^3/uL (0.0-0.2) Prothrombin Time 11.4 SEC (11.7-14.0) Prothromb Time International Ratio 0.9 (0.8-1.1) D-Dimer (Monica) 0.81 ug/mlFEU (0.00-0.50) Sodium Level 144 mmol/L (136-145) Potassium Level 3.9 mmol/L (3.5-5.1) Chloride Level 104 mmol/L (98-107) Carbon Dioxide Level 31 mmol/L (21-32) Anion Gap 9 (6-14) Blood Urea Nitrogen 14 mg/dL (7-20) Creatinine 0.8 mg/dL (0.6-1.0) Estimated GFR (Cockcroft-Gault) 71.5 BUN/Creatinine Ratio 18 (6-20) Glucose Level 105 mg/dL (70-99) Calcium Level 8.9 mg/dL (8.5-10.1) Total Bilirubin 0.2 mg/dL (0.2-1.0) Aspartate Amino Transf (AST/SGOT) 29 U/L (15-37) Alanine Aminotransferase (ALT/SGPT) 33 U/L (14-59) Alkaline Phosphatase 148 U/L (46-116) Troponin I Quantitative < 0.017 ng/mL (0.000-0.055) < 0.017 ng/mL (0.000-0.055) < 0.017 ng/mL (0.000-0.055) Total Protein 6.9 g/dL (6.4-8.2) Albumin 3.4 g/dL (3.4-5.0) Albumin/Globulin Ratio 1.0 (1.0-1.7) Triglycerides Level 82 mg/dL (0-150) Cholesterol Level 153 mg/dL (0-200) LDL Cholesterol, Calculated 100 mg/dL (0-100) VLDL Cholesterol, Calculated 16 mg/dL (0-40) Non-HDL Cholesterol Calculated 116 mg/dL (0-129) HDL Cholesterol 37 mg/dL (40-60) Cholesterol/HDL Ratio 4.1 Brief Hospital Course Ms. Abdi is a 67 old female with presented to the emergency department with atypical presentation or chest pain. Patient was seen in consultation by cardiology who recommended left heart catheter in light of her recurrent symptoms. The patient's heart Was negative and she was deemed appropriate from the cardiological standpoint of view to be dismissed home. She will continue with further workup for this discomfort in the outpatient setting as recommended by our [employer] consultant. She should seek a consultation with Dr. Thornton with gastroenterology since she had a failed EGD last year. CONCERNS WERE ADDRESSED TO THE BEST OF MY ABILITIES. PHYSICAL EXAM: UNCHANGED FROM H&P Discharge Information Condition at Discharge: Improved Follow Up: Weeks Disposition/Orders: D/C to Home Scheduled Esomeprazole Magnesium (Nexium Capsule) 20 Mg Capsule., 1 CAP PO HS for GERD, #30 Ref 2 (Reported) Entered as Reported by: ANSHUL SHAH on 06/20/185 Last Action: New Order on 06/20/185 by ANSHUL SHAH Scheduled PRN Aspirin (Aspirin) 325 Mg Tablet, 325 MG PO PRN PRN for PER PROTOCOL, (Reported) Entered as Reported by: MANI CHAHAL on 05/19/13 1732 Naproxen Sodium (Naproxen Sodium) 220 Mg Tablet, 220 MG PO BID PRN for PAIN, #20 Prescribed by: IBRAHIMA LEE MD on 07/17/16 1727 FRANCISCO VIERA MD Jun 20, 2018 14:58
--- NOTE | 2018-06-20 18:40 | NUR ---
Discharge Note: HALLEY OBRIEN [address] Discharge instructions and discharge home medications reviewed with Patient and a copy given. All questions have been answered and understanding verbalized. The following instructions and handouts were given: diet, chest pain, follow up. Discontinued lines and drains: 2 IV's removed, no lines present. Patient discharged to home, left via wheelchair to husbands vehicle.
== END 2018-06-20 18:30 | disposition home or self-care (01) | DRG 287 ==
LOC: ER 21:45 → 2 SOUTH 23:00
PROVIDERS: ADMIT Internal Medicine; ATTEND Internal Medicine
PROC: 4A023N7 Measurement of Cardiac Sampling and Pressure, Left Heart, Percutaneous Approach (ICD-10-PCS; principal; 2018-06-20)
PROC: B2151ZZ Fluoroscopy of Left Heart using Low Osmolar Contrast (ICD-10-PCS; 2018-06-20)
PROC: B2111ZZ Fluoroscopy of Multiple Coronary Arteries using Low Osmolar Contrast (ICD-10-PCS; 2018-06-20)
DX: I20.0 Unstable angina (principal); K22.4 Dyskinesia of esophagus; K44.9 Diaphragmatic hernia without obstruction or gangrene; E66.9 Obesity, unspecified; K21.9 Gastro-esophageal reflux disease without esophagitis; E78.00 Pure hypercholesterolemia, unspecified; E78.5 Hyperlipidemia, unspecified; F17.210 Nicotine dependence, cigarettes, uncomplicated; J44.9 Chronic obstructive pulmonary disease, unspecified; M79.7 Fibromyalgia; M19.90 Unspecified osteoarthritis, unspecified site; Z68.30 Body mass index [BMI] 30.0-30.9, adult; Z79.82 Long term (current) use of aspirin; Z82.49 Family history of ischemic heart disease and other diseases of the circulatory system; Z86.73 Personal history of transient ischemic attack (TIA), and cerebral infarction without residual deficits; Z90.710 Acquired absence of both cervix and uterus; Z90.49 Acquired absence of other specified parts of digestive tract; Z98.51 Tubal ligation status; Z71.6 Tobacco abuse counseling; Z88.8 Allergy status to other drugs, medicaments and biological substances
CPT/HCPCS: 36415; 71045; 71275; 80053; 80061; 84484; 85025; 85379; 85610; 93005; 93306; 93458; 99152; 99153; C1769; C1892; J1644; J2250; J3010; J3490; Q9967; 99285-25

== ENCOUNTER → 2018-08-01 | Outpatient (CLI) | payer MEDICARE ==
[2018-06-20 17:45] VITALS: BP 102/61
[~2018-08-01] MED LIST changes: +ESOM20CA PO
--- NOTE | 2018-08-01 14:04 | KCIC ---
Bilateral digital screening mammograms with 3-D tomosynthesis: Reason for examination: Routine screening. Comparison is made to previous studies dated 07/11/2017 and 12/14/2012. Bilateral mammograms in CC and oblique projections were obtained with 2-D imaging and 3-D tomosynthesis imaging on a Siemens Inspiration unit and reviewed on the workstation. Interpretation was made with the benefit of CAD. The skin and nipples show no abnormalities. No abnormal axillary lymph nodes are seen. The breast parenchyma shows scattered fatty and fibroglandular density. (Breast density: Category B.) There appears to be a small 6 mm nodule developing at the 10:00 B position of the right breast located approximately 9 cm from the nipple. Recommend further evaluation with coned compression views and ultrasound. Dominant masses, suspicious calcifications or architectural distortion. Benign calcifications are present. Impression: 6 mm nodule at the 10:00 B position of the right breast approximately 9 cm from the nipple. Recommend further evaluation with coned compression views and ultrasound. BI-RAD Category 0: Incomplete. Needs additional imaging evaluation. "Our facility is accredited by the [employer] Mammography Program." This patient's information has been entered into a reminder system for the patient to be notified with the results of her examination and a target date for the next mammogram. Electronically signed by: Beulah Avila MD (08/01/2018 2:02 PM) [id number]
== END | disposition home or self-care (01) ==
LOC: KCIC MAMMO 07:52
PROVIDERS: ATTEND Family Medicine
DX: Z12.31 Encounter for screening mammogram for malignant neoplasm of breast (principal); N63.11 Unspecified lump in the right breast, upper outer quadrant
CPT/HCPCS: 77063; 77067

== ENCOUNTER → 2018-08-13 | Outpatient (CLI) | payer MEDICARE ==
[2018-06-20 17:45] VITALS: BP 102/61
--- NOTE | 2018-08-13 14:01 | KCIC ---
EXAM: Right breast diagnostic mammogram; right breast sonogram. HISTORY: 67-year-old female presents for evaluation of asymmetry within the right breast demonstrated on a mammogram dated 08/01/2018. TECHNIQUE: Spot compression views of the right breast are obtained. Sonographic imaging of the right breast targeted to the site of nodularity was also performed. COMPARISON: 08/01/2018 and 07/11/2017 BREAST PARENCHYMAL DENSITY: Level B - Scattered fibroglandular densities. FINDINGS: There is a persistent small nodular density with indistinct margins within the 10:00 position of the right breast with additional mammographic views. Sonographic imaging of the right breast demonstrates a small suspected complicated cyst or fibrocystic lesion at the 10:30 position 6 cm from the nipple measuring 3 mm in maximum dimension. This may correspond with the region of mammographic nodularity. No suspicious sonographic lesion is seen within this location. IMPRESSION: 1. Small complicated cyst or fibrocystic lesion at the 10:30 position of the right breast, possibly corresponding with persistent nodularity within this location on dedicated spot compression sonographic images. 2. BI-RADS Category 3: Probably benign finding(s). Short term follow up with a diagnostic right breast mammogram and sonogram in 6 months is recommended to confirm stability and benignity. If your mammogram demonstrates that you have dense breast tissue, which could hide abnormalities, and if you have other risk factors for breast cancer that have been identified, you might benefit from supplemental screening tests that may be suggested by your ordering physician. Dense breast tissue, in and of itself, is a relatively common condition. This information is not provided to cause undue concern, but rather to raise your awareness and to promote discussion with your physician regarding the presence of other risk factors, in addition to dense breast tissue. A report of your mammography results will be sent to you and your physician. You should contact your physician if you have any questions or concerns regarding this report. Mammography is a sensitive method for finding small breast cancers, but it does not detect them all and is not a substitute for careful clinical examination. A negative mammogram does not negate a clinically suspicious finding and should not result in delay in biopsying a clinically suspicious abnormality. PQRS compliance statement - Patient information was entered into a reminder system with a target due date for the next mammogram. "Our facility is accredited by the [employer] Mammography Program." Electronically signed by: Lainey Bautista MD (08/13/2018 1:57 PM) [id number]
== END | disposition home or self-care (01) ==
LOC: KCIC MAMMO 12:30
PROVIDERS: ATTEND Family Medicine
DX: N64.89 Other specified disorders of breast (principal)
CPT/HCPCS: 76641; 77065

== ENCOUNTER → 2019-02-05 | Outpatient (CLI) | payer MEDICARE ==
[2018-06-20 17:45] VITALS: BP 102/61
--- NOTE | 2019-02-05 10:12 | KCIC ---
Right breast diagnostic digital mammograms with 3-D tomosynthesis: Reason for examination: Follow-up nodule. Comparison is made to previous studies dated 08/01/2018 and 08/13/2018. Right breast mammograms in CC and oblique projections were obtained with 2-D imaging and 3-D tomosynthesis imaging on a Siemens Inspiration unit and reviewed on the workstation. Interpretation was made with the benefit of CAD. The skin and nipple show no abnormalities. No abnormal axillary lymph nodes are seen. The breast parenchyma shows scattered fatty and fibroglandular density. (Breast density: Category B.) There continues to be a small nodular density at the 10:00 B position which has not changed. There are no new dominant masses, suspicious calcifications or architectural distortion. Benign calcifications are present. Impression: No change in the small nodular density at the 10:00 B position. Ultrasound to follow. BI-RAD Category 0: Incomplete. Needs additional imaging evaluation. Right breast ultrasound: Comparison is made to previous study dated 08/13/2018. Ultrasound examination was performed in the area of mammographic concern and at the axilla. There continues to be a small fibrocystic lesion measuring 4 mm in size at the 10:30 position 6 cm from the nipple which is unchanged. There are no new cystic or solid lesion seen. No abnormal appearing lymph nodes are seen in the axilla. IMPRESSION: Continued presence of a benign-appearing fibrocystic lesion at the 10:30 position 6 cm from the nipple with no significant interval change. Recommend routine mammographic follow-up. BI-RADS Category 2: Benign. "Our facility is accredited by the [employer] Mammography Program." This patient's information has been entered into a reminder system for the patient to be notified with the results of her examination and a target date for the next mammogram. Electronically signed by: Beulah Avila MD (02/05/2019 10:08 AM) [email or web address]
== END | disposition home or self-care (01) ==
LOC: KCIC MAMMO 08:47
PROVIDERS: ATTEND Nurse Practitioner
DX: N64.89 Other specified disorders of breast (principal)
CPT/HCPCS: 76641; 77065; G0279; 77061

== ENCOUNTER → 2020-06-30 | Outpatient (CLI) | payer MEDICARE ==
[2018-06-20 17:45] VITALS: BP 102/61
[~2020-06-30] MED LIST changes: -CIPR500T PO; +CIPR500T2 PO
--- NOTE | 2020-06-30 16:45 | RAD ---
DATE: 06/30/2020 9:03 AM EXAM: MAMMO BABAK SCREENING BILATERAL HISTORY: Screening COMPARISON: Right breast ultrasound of 02/05/2019, right diagnostic mammogram of 02/05/2019, 08/01/2018, 07/11/2017 Bilateral CC and MLO views of the breasts were performed. Bilateral breast tomosynthesis was performed in CC and MLO projections. This study was interpreted with the benefit of Computerized Aided Detection (CAD). FINDINGS: Breast Density: SCATTERED The breast parenchyma shows scattered fibroglandular densities. Breast parenchyma level B Negative left mammogram. There is a focal asymmetry in the upper outer right breast middle third at the approximate 10:00 position 8 cm from the nipple (best seen on cc tomographic image 32 of 54 and MLO tomographic image 28 of 64). It cannot be confirmed stable and needs additional imaging with a right CC spot compression view, full-field lateral view, and targeted right breast ultrasound. It may help for sonographic correlation to place a marker at the skin surface at the time that the right diagnostic mammogram (spot cc view) is obtained. IMPRESSION: Right breast focal asymmetry, findings for which additional imaging is advised. BI-RADS CATEGORY: 0 INCOMPLETE: NEEDS ADDITIONAL IMAGING EVALUATION AND/OR PRIOR MAMMOGRAMS FOR COMPARISON. RECOMMENDED FOLLOW-UP: ADD ADDITIONAL IMAGING The patient will be contacted to return for additional imaging and a supplemental report will follow. PQRS compliance statement: Patient information was entered into a reminder system with a target due date for the next mammogram. Mammography is a sensitive method for finding small breast cancers, but it does not detect them all and is not a substitute for careful clinical examination. A negative mammogram does not negate a clinically suspicious finding and should not result in delay in biopsying a clinically suspicious abnormality. "Our facility is accredited by the [employer] Mammography Program."
== END ==
LOC: MAMMO 09:19
PROVIDERS: ATTEND Nurse Practitioner
DX: Z12.31 Encounter for screening mammogram for malignant neoplasm of breast (principal)
CPT/HCPCS: 77063; 77067

== ENCOUNTER → 2020-07-23 | Outpatient (CLI) | payer MEDICARE ==
[2018-06-20 17:45] VITALS: BP 102/61
--- NOTE | 2020-07-23 10:23 | RAD ---
EXAM: Right breast diagnostic mammogram; right breast sonogram. HISTORY: 69-year-old female presents for evaluation of asymmetry within the right breast demonstrated on a screening mammogram dated 06/30/2020. TECHNIQUE: Full-field digital and spot compression views of the right breast are obtained. Sonographi c imaging of the right breast targeted to the site of asymmetry was also performed. COMPARISON: Mammograms dated 06/30/2020, 02/05/2019, 08/13/2018 and 07/11/2017 and sonograms dated 019 and 01/05/2019 BREAST PARENCHYMAL DENSITY: Level B - Scattered fibroglandular densities. FINDINGS: There is persistent asymmetry within the 10:00 position of the right breast with additional mammographic views. This is slightly less conspicuous compared to prior exams and appears to change configuration with spot compression, favoring benignity. There are segmental and loosely clustered fa int calcifications within the lateral right breast which are also stable compared to studies dating t o 07/11/2017, allowing for differences in imaging technique. The morphology of these calcifications fa vors a benign fibrocystic etiology. No convincing new calcification is seen. There is no architectura l distortion. Sonographic imaging of the right breast demonstrates a 3 mm suspected complicated cyst at the 10:30 p osition 6 cm from the nipple. This is slightly decreased compared to the most recent prior sonogram. There are surrounding fibrocystic changes. No new lesion is seen. IMPRESSION: 1. Persistent small asymmetry within the 10:00 position of the right breast at mid depth which is sli ghtly less conspicuous on spot compression views compared to prior studies. There is a tiny cyst with surrounding fibrocystic change in this location demonstrated sonographically. The combination of the se findings and absence of significant change in mammographic findings over a three-year interval fav ors benignity. 2. Segmental and loosely clustered calcifications within the lateral right breast which demonstrate m orphology favoring a benign fibrocystic etiology. The greater than two-year course of stability favor s benignity. 3. BI-RADS Category 3: Probably benign finding(s). Precautionary short-term follow-up with a right br east diagnostic mammogram in 6 months is recommended. If your mammogram demonstrates that you have dense breast tissue, which could hide abnormalities, and if you have other risk factors for breast cancer that have been identified, you might benefit from s upplemental screening tests that may be suggested by your ordering physician. Dense breast tissue, i n and of itself, is a relatively common condition. This information is not provided to cause undue c oncern, but rather to raise your awareness and to promote discussion with your physician regarding th e presence of other risk factors, in addition to dense breast tissue. A report of your mammography re sults will be sent to you and your physician. You should contact your physician if you have any ques tions or concerns regarding this report. Mammography is a sensitive method for finding small breast cancers, but it does not detect them all a nd is not a substitute for careful clinical examination. A negative mammogram does not negate a clin ically suspicious finding and should not result in delay in biopsying a clinically suspicious abnorma lity. PQRS compliance statement - Patient information was entered into a reminder system with a target due date for the next mammogram. "Our facility is accredited by the [employer] Mammography Program." Electronically signed by: Lainey Bautista MD (07/23/2020 10:20 AM) [id number]
== END ==
LOC: MAMMO 09:39
PROVIDERS: ATTEND Nurse Practitioner
DX: R92.8 Other abnormal and inconclusive findings on diagnostic imaging of breast (principal); N60.01 Solitary cyst of right breast
CPT/HCPCS: 76641; 77065

== ENCOUNTER 2020-09-05 21:08 | Emergency (ER) | payer MEDICARE ==
[~2020-09-05] VITALS: Ht 170.2 cm; Wt 86.4 kg
[2020-09-05] MEDS: fentaNYL PF VIAL 100 MCG/2 ML VIAL IV PRN ×2 (21:43→22:30)
[2020-09-05 21:45] LABS: BASO # 0.1 x10^3/uL (0.0-0.2); BASO % 1 % (0-3); EOS # 0.1 x10^3/uL (0.0-0.7); EOS % 2 % (0-3); HEMATOCRIT 38.9 % (36.0-47.0); HEMOGLOBIN 13.4 g/dL (12.0-15.5); LYMPH # 1.8 x10^3/uL (1.0-4.8); LYMPH % 30 % (24-48); MEAN CORPUSCULAR HEMOGLOBIN 32 pg (25-35); MEAN CORPUSCULAR HGB CONC 34 g/dL (31-37); MEAN CORPUSCULAR VOLUME 93 fL (79-100); MONO # 0.5 x10^3/uL (0.0-1.1); MONO % 8 % (0-9); NEUT # 3.5 x10^3/uL (1.8-7.7); NEUT % 59 % (31-73); PLATELET COUNT 218 x10^3/uL (140-400); RED BLOOD COUNT 4.18 x10^6/uL (3.50-5.40); RED CELL DISTRIBUTION WIDTH 13.3 % (11.5-14.5); WHITE BLOOD COUNT 5.9 x10^3/uL (4.0-11.0)
--- NOTE | 2020-09-05 21:55 | PHYS DOC ---
Past Medical History Past Medical History: COPD, High Cholesterol, Stroke Additional Past Medical Histor: Fibromyalgia (PAL MCMILLAN WORD PROCESSOR TECHNICIAN) Past Surgical History: Hysterectomy, Other Additional Past Surgical Histo: bladder slinge (PAL MCMILLAN WORD PROCESSOR TECHNICIAN) Smoking Status: Current Some Day Smoker Alcohol Use: None Drug Use: None (PAL MCMILLAN WORD PROCESSOR TECHNICIAN) General Adult EDM: Chief Complaint: ABDOMINAL PAIN HPI: HPI: Patient is a 69 year old female who presents with 10 out of 10 sharp intermittent left upper quadrant abdominal pain that has been going on for 2 years and got worse today. Patient is also reporting nausea and vomiting. States vomiting relieves this pain. She states she has been worked up for this pain with nothing acute found. Denies any fever. Denies any use of alcohol. She states she was told she has a hernia but does not believe her hernia can cause that this much pain. Denies any chest pain or shortness of breath (PAL MCMILLAN WORD PROCESSOR TECHNICIAN) Review of Systems: Review of Systems: Constitutional: Denies fever or chills. [] Eyes: Denies change in visual acuity. [] HENT: Denies nasal congestion or sore throat. [] Respiratory: Denies cough or shortness of breath. [] Cardiovascular: Denies chest pain or edema. [] GI: Reports chronic left upper quadrant abdominal pain, denies bloody stools or diarrhea. [] : Denies dysuria. [] Musculoskeletal: Denies back pain or joint pain. [] Integument: Denies rash. [] Neurologic: Denies headache, focal weakness or sensory changes. [] Psychiatric: Denies depression or anxiety. [] (PAL MCMILLAN WORD PROCESSOR TECHNICIAN) Heart Score: C/O Chest Pain: N/A Risk Factors: Risk Factors: DM, Current or recent (<one month) smoker, HTN, HLP, family history of CAD, obesity. Risk Scores: Score 0 - 3: 2.5% MACE over next 6 weeks - Discharge Home Score 4 - 6: 20.3% MACE over next 6 weeks - Admit for Clinical Observation Score 7 - 10: 72.7% MACE over next 6 weeks - Early Invasive Strategies (PAL MCMILLAN WORD PROCESSOR TECHNICIAN) Current Medications: Current Medications Medications (Trade) Dose Ordered Sig/Beatriz Start Time Stop Time Status Last Admin Dose Admin Fentanyl Citrate (Fentanyl 2ml Vial) 50 mcg PRN Q15MIN PRN 09/05/20 21:45 09/06/20 21:44 09/05/20 21:43 50 MCG Ondansetron HCl (Zofran) 4 mg 1X ONCE 09/05/20 22:00 09/05/20 22:01 09/05/20 21:43 4 MG Sodium Chloride 1,000 ml @ 1,000 mls/hr 1X ONCE 09/05/20 22:00 09/05/20 22:59 09/05/20 21:44 1,000 MLS/HR (PAL MCMILLAN WORD PROCESSOR TECHNICIAN) Allergies: Allergies: Allergies Coded Allergies Type Severity Reaction Last Updated Verified pregabalin Allergy Intermediate 01/27/18 No (PAL MCMILLAN WORD PROCESSOR TECHNICIAN) Physical Exam: PE: Constitutional: Well developed, well nourished, no acute distress, non-toxic appearance. [] HENT: Normocephalic, atraumatic, bilateral external ears normal, oropharynx moist, no oral exudates, nose normal. [] Eyes: PERRLA, EOMI, conjunctiva normal, no discharge. [] Neck: Normal range of motion, no tenderness, supple, no stridor. [] Cardiovascular:Heart rate regular rhythm, no murmur [] Lungs & Thorax: Bilateral breath sounds clear to auscultation [] Abdomen: Bowel sounds normal, soft, diffuse tenderness on palpation of the left upper quadrant, no right upper quadrant or right lower quadrant tenderness no masses, no pulsatile masses. [] Skin: Warm, dry, no erythema, no rash. [] Back: No tenderness, no CVA tenderness. [] Extremities: No tenderness, no cyanosis, no clubbing, ROM intact, no edema. [] Neurologic: Alert and oriented X 3, normal motor function, normal sensory function, no focal deficits noted. [] Psychologic: Affect normal, judgement normal, mood normal. [] (PAL MCMILLAN WORD PROCESSOR TECHNICIAN) Current Patient Data: Labs: Laboratory Tests Test 09/05/20 21:33 White Blood Count 5.9 x10^3/uL (4.0-11.0) Red Blood Count 4.18 x10^6/uL (3.50-5.40) Hemoglobin 13.4 g/dL (12.0-15.5) Hematocrit 38.9 % (36.0-47.0) Mean Corpuscular Volume 93 fL (79-100) Mean Corpuscular Hemoglobin 32 pg (25-35) Mean Corpuscular Hemoglobin Concent 34 g/dL (31-37) Red Cell Distribution Width 13.3 % (11.5-14.5) Platelet Count 218 x10^3/uL (140-400) Neutrophils (%) (Auto) 59 % (31-73) Lymphocytes (%) (Auto) 30 % (24-48) Monocytes (%) (Auto) 8 % (0-9) Eosinophils (%) (Auto) 2 % (0-3) Basophils (%) (Auto) 1 % (0-3) Neutrophils # (Auto) 3.5 x10^3/uL (1.8-7.7) Lymphocytes # (Auto) 1.8 x10^3/uL (1.0-4.8) Monocytes # (Auto) 0.5 x10^3/uL (0.0-1.1) Eosinophils # (Auto) 0.1 x10^3/uL (0.0-0.7) Basophils # (Auto) 0.1 x10^3/uL (0.0-0.2) Laboratory Tests 09/05/20 21:33 Vital Signs: Vital Signs Date Time Temp Pulse Resp B/P (MAP) Pulse Ox O2 Delivery O2 Flow Rate FiO2 09/05/20 21:43 93 Room Air ([facility]) EKG: EK interpreted by Dr. Ackerman sinus rhythm heart rate 90 no STEMI [] ([facility]) Radiology/Procedures: Radiology/Procedures: []PROCEDURE: CT ABD PELV W/ IV CONTRST ONLY CT ABDOMEN+PELVIS W History: Reason: lUQ pain, OMNI 300, 60 ML IV / Spl. Instructions: / History: Technique: After the administration of intravenous contrast, CT imaging was performed of the abdomen and pelvis. Multiplanar images are reviewed. Exposure: One or more of the following individualized dose reduction techniques were utilized for this examination: 1. Automated exposure control 2. Adjustment of the mA and/or kV according to patient size 3. Use of iterative reconstruction technique. Comparison: January 26, 2018 Findings: Lower chest: Small hiatal hernia. Fluid-filled distal esophagus. Abdomen and pelvis: The liver, spleen, adrenal glands, gallbladder and pancreas are unremarkable. No biliary ductal dilatation. Normal appearance the kidneys. No hydronephrosis. No renal calculi. Decompressed urinary bladder. Minimal colonic diverticulosis. Appendix not well seen. No evidence of bowel obstruction. No pathologic lymphadenopathy. No ascites. Prior hysterectomy. Mild atheromatous plaque within the nonaneurysmal abdominal aorta and branch vessels. Bones: Lower thoracic hemangiomas. Impression: 1. No acute abdominal or pelvic pathology. 2. Small hiatal hernia with fluid filled distal esophagus, may relate to reflux. Electronically signed by: Wing Gilman DO (09/05/2020 11:09 PM) [facility] DICTATED and SIGNED BY: WING GILMAN DO DATE: 09/05/20 [id number] (PAL MCMILLAN APRN) Course & Med Decision Making: Course & Med Decision Making Pertinent Labs and Imaging studies reviewed. (See chart for details) This is a 69-year-old female patient presented to the ED today complaining of left upper quadrant pain for 2 years that got worse today. Also complaining of nausea and vomiting. CBC, CMP, troponin with no acute findings, EKG is negative. Patient's labs are negative for any acute findings. CT of the abdomen and pelvic was noted for hiatal hernia otherwise no acute findings. Discharge to home. (PAL MCMILLAN APRN) Dragon Disclaimer: Dragon Disclaimer: This electronic medical record was generated, in whole or in part, using a voice recognition dictation system. (PAL MCMILLAN APRN) Departure Departure Impression: Primary Impression: Chronic LUQ pain Disposition: HOME / SELF CARE / HOMELESS Condition: STABLE Referrals: BELLA LEZAMA-Cole (PCP) follow up next week COLIN ANTONIO MD follow up next week Patient Instructions: Abdominal Pain (Nonspecific) Additional Instructions: You were seen for left upper quadrant abdominal pain. Please follow-up with your primary care doctor next week, we also provided you a GI doctor, follow-up with them Attending Signature Attending Signature I have reviewed the PA/PLASTIC JIG AND FIXTURE BUILDER's note and plan of care. I was available for consultation as needed during the patient's visit in the emergency department. I agree with the clinical impression, plan, and disposition. (GABRIELLA ACKERMAN DO) PAL MCMILLAN APRN Sep 05, 2020 21:55 GABRIELLA ACKERMAN DO Sep 06, 2020 05:03
[2020-09-05] MEDS ORDERED: ONDANSETRON PF 4 MG/2 ML VIAL. IVP ONE (22:00)
[2020-09-05] MEDS ORDERED: IV NORMAL SALINE 1000ML BAG 1,000 ML IV ONE (22:00)
--- NOTE | 2020-09-05 22:05 | EKG ---
[facility] [address] [place] [address] Test Date: 2020-09-05 Test Time: 21:41:30 Pat Name: HALLEY OBRIEN Department: Room: Gender: F [employer] Driver: : 1950 Requested By: PAL MCMILLAN Order Number: [id number] Reading MD: Measurements Intervals [place] Rate: 90 P: 3 HI: 182 QRS: 37 QRSD: 82 T: 60 QT: 360 QTc: 444 Interpretive Statements SINUS RHYTHM NO SPECIFIC ECG ABNORMALITIES RI6.02 No previous ECG available for comparison
[2020-09-05 22:13] LABS: POTASSIUM 3.8 mmol/L (3.5-5.1)
[2020-09-05 22:19] LABS: ALBUMIN 3.8 g/dL (3.4-5.0); ALBUMIN/GLOBULIN RATIO 1.6 (1.0-1.7); MAGNESIUM 1.8 mg/dL (1.8-2.4); TOTAL BILIRUBIN 0.4 mg/dL (0.2-1.0); TOTAL PROTEIN 6.2 g/dL (6.4-8.2)
[2020-09-05] MEDS ORDERED: CONTRAST GIVEN. MC PRN (22:30)
[2020-09-05] MEDS ORDERED: IOHEXOL 300 MG/ML 100ML VIAL. IV ONE (23:00)
--- NOTE | 2020-09-05 23:12 | RAD ---
CT ABDOMEN+PELVIS W History: Reason: lUQ pain, OMNI 300, 60 ML IV / Spl. Instructions: / History: Technique: After the administration of intravenous contrast, CT imaging was performed of the abdomen and pelvis. Multiplanar images are reviewed. Exposure: One or more of the following individualized dose reduction techniques were utilized for thi s examination: 1. Automated exposure control 2. Adjustment of the mA and/or kV according to patient size 3. Use of iterative reconstruction technique. Comparison: January 26, 2018 Findings: Lower chest: Small hiatal hernia. Fluid-filled distal esophagus. Abdomen and pelvis: The liver, spleen, adrenal glands, gallbladder and pancreas are unremarkable. No biliary ductal dilatation. Normal appearance the kidneys. No hydronephrosis. No renal calculi. Decomp ressed urinary bladder. Minimal colonic diverticulosis. Appendix not well seen. No evidence of bowel obstruction. No patholog ic lymphadenopathy. No ascites. Prior hysterectomy. Mild atheromatous plaque within the nonaneurysmal abdominal aorta and branch vessels. Bones: Lower thoracic hemangiomas. Impression: 1. No acute abdominal or pelvic pathology. 2. Small hiatal hernia with fluid filled distal esophagus, may relate to reflux. Electronically signed by: Wing Gilman DO (09/05/2020 11:09 PM) [facility]
[2020-09-05 23:16] VITALS: BP 133/63
== END 2020-09-05 23:43 | disposition home or self-care (01) ==
LOC: ER 21:08
DX: G89.29 Other chronic pain (principal); R10.12 Left upper quadrant pain; R11.2 Nausea with vomiting, unspecified; J44.9 Chronic obstructive pulmonary disease, unspecified; E78.00 Pure hypercholesterolemia, unspecified; M79.7 Fibromyalgia; F17.200 Nicotine dependence, unspecified, uncomplicated; Z90.710 Acquired absence of both cervix and uterus; Z86.73 Personal history of transient ischemic attack (TIA), and cerebral infarction without residual deficits; Z88.8 Allergy status to other drugs, medicaments and biological substances
CPT/HCPCS: 36415; 74177; 80053; 83690; 83735; 83880; 84443; 84484; 85025; 93005; 96361; 96374; 96375; 96376; 99285; J2405; J3010; J7030; Q9967

== ENCOUNTER → 2021-06-01 | Outpatient (CLI) | payer MEDICARE ==
--- NOTE | 2021-06-01 17:30 | RAD ---
US THYROID History: Nontoxic single thyroid nodule. Comparison: None. Technique: Multiple grayscale and color Doppler images of the thyroid gland were obtained. Findings: Right thyroid lobe: 4.7 x 2.4 x 2.0 cm. Left thyroid lobe: 3.4 x 1.4 x 1.3 cm. Isthmus: 0.3 cm. The right thyroid gland is mostly replaced by 2 large nodules. The left thyroid gland is relatively h omogeneous with a tiny 2 mm hypoechoic nodule. Nodule #1. Size: 2.5 x 1.8 x 1.7 cm Location: Right mid. Characteristics: Solid, hypoechoic, taller than wide, circumscribed, no echogenic foci ACR TI-RADS risk category: TR5 (7 points): FNA if 1 cm, follow-up if 0.5-0.9 cm every year for 5 year s. Disposition: Recommend FNA. Nodule #2. Size: 1.8 x 1.6 x 1.3 cm Location: Right inferior. Characteristics: Solid, hypoechoic, wider than tall, circumscribed, no echogenic foci ACR TI-RADS risk category: TR4 (4-6 points): FNA if 1.5 cm, follow-up if 1-1.4 cm in 1, 2, 3, and 5 y ears. Disposition: Recommend FNA. IMPRESSION: 1. Right thyroid with highly suspicious 2.5 cm and moderately suspicious 1.8 cm nodules. Recommend f ine-needle aspiration of both nodules. ACR Thyroid Imaging, Reporting And Data System (TI-RADS): White Paper Of The ACR TI-RADS Committee. J ournal of the [employer] [employer], volume 14, issue 5, pages 587-595 (August 2016). Electronically signed by: Jose Maria Nassar MD (06/01/2021 5:28 PM) [id number]
== END ==
LOC: US 10:28
PROVIDERS: ATTEND Registered Nurse
DX: E04.2 Nontoxic multinodular goiter (principal)
CPT/HCPCS: 76536

== ENCOUNTER → 2021-06-16 | Outpatient (CLI) | payer MEDICARE ==
--- NOTE | 2021-06-16 09:20 | RAD ---
EXAM: Sonographic guided thyroid fine-needle aspiration. HISTORY: 70-year-old female presents for sonographic guided fine-needle aspiration of 2 right thyroid nodules demonstrated on a sonogram performed 06/01/2021. TECHNIQUE: The risks of the procedure were discussed with the patient and written and verbal consent was obtained. A timeout was performed. Sonographic imaging of the right thyroid lobe was performed of the nodules of concern measuring 2.5 cm within the lateral mid zone and 1.8 cm within the inferior l obe identified. The skin overlying these lesions was sterilely prepped, draped and infiltrated with 1 percent lidocaine. Multiple passes were made into both nodules with 25-gauge needles using sonograph ic guidance. The aspirate was submitted to the cytopathologist for interpretation. Manual compression was maintained until hemostasis was achieved. A sterile bandage placed. The patient tolerated the pr ocedure without complication. IMPRESSION: Sonographic guided fine-needle aspiration of nodules within the lateral mid and inferior right thyroid lobe. An addendum to this report will be submitted when pathology results are available . Electronically signed by: Lainey Bautista MD (06/16/2021 9:18 AM) [id number]
== END | disposition home or self-care (01) ==
LOC: US 08:04
PROVIDERS: ATTEND Otolaryngology
DX: E04.2 Nontoxic multinodular goiter (principal); E78.00 Pure hypercholesterolemia, unspecified; J44.9 Chronic obstructive pulmonary disease, unspecified; E66.9 Obesity, unspecified; K21.9 Gastro-esophageal reflux disease without esophagitis; M19.90 Unspecified osteoarthritis, unspecified site; F17.210 Nicotine dependence, cigarettes, uncomplicated; Z87.440 Personal history of urinary (tract) infections; Z90.49 Acquired absence of other specified parts of digestive tract; Z98.51 Tubal ligation status; Z98.890 Other specified postprocedural states; Z86.73 Personal history of transient ischemic attack (TIA), and cerebral infarction without residual deficits; Z79.899 Other long term (current) drug therapy; Z79.82 Long term (current) use of aspirin; Z88.8 Allergy status to other drugs, medicaments and biological substances
CPT/HCPCS: 10005; 10006; C1819